=== PATIENT | male | born 1950 | race Caucasian/White ===

== ENCOUNTER 2020-04-18 03:45 | Outpatient (CLI) | payer MEDICARE, SELFPAY ==
[2020-04-18 16:31] LABS: SARS-CoV-2 RNA PCR Negative
== END 2020-04-18 03:46 | disposition home or self-care (01) ==
LOC: ANHCOVIDDT 03:46
PROVIDERS: PCP Family Medicine; Visit Provider Internal Medicine Critical Care Medicine
DX: R68.89 Other general symptoms and signs (principal); Z20.822 Contact with and (suspected) exposure to COVID-19
CPT/HCPCS: C9803; U0003; U0005

== ENCOUNTER 2020-04-20 07:49 | Outpatient (CLI) | payer MEDICARE, SELFPAY ==
--- NOTE | 2020-05-22 08:52 | WPDSLEEPSTUD ---
Sleep Study Date of Study: 04/20/20 Ordering Provider: Noemi Alejo MD Interpreting Physician: Nat Mckay MD Sleep Study Type: Split Polysomnogram Height: 1.8 m Weight: 131.995 kg Body Mass Index: 40.6 Neck Circumference: 50.8 cm [place]: 6 Reason for Sleep Study Frequent loud snoring Sleep History Fidel March is a 69-year-old man who frequently snores, occasionally loudly enough that others complain about it. He occasionally awakens at night with heartburn, belching or coughing. He occasionally awakens from sleep feeling short of breath. He occasionally has trouble sleeping with a cold. He occasionally gasp for breath at night and has breathing problems at night reported to him by others. He rarely sweats excessively at night. He does not notice his heart pounding or beating irregularly at night. He rarely falls asleep during the day, never involuntarily or while driving. He does not have loss of muscle tone with strong emotion. He does not have daytime difficulties due to excessive sleepiness, he is retired. He denies feeling paralyzed when waking or falling asleep and denies vivid dreamlike scenes upon awakening or falling asleep. He is not afraid to go to sleep. He rarely has nightmares. He occasionally remembers his dreams. He rarely has racing thoughts. He denies feelings of sadness, depression, anxiety and does not have muscular tension, does not notice part of his body jerking. He does not kick at night or have crawling aching feelings in his legs. He denies any kind of leg pain at night. He does not have morning jaw pain. He rarely grinds his teeth during sleep. He rarely is bothered by pain during the day. He is not awakened by pain at night. He rarely wakes up feeling stiff in the morning with sore achy muscles or pain in the spine. He reports a 10 lb weight gain in the last year. Normal bedtime is 10:00 p.m. falling asleep within 30 minutes, waking 2-3 times at night to urinate. He stays awake for roughly 15 minutes. He wakes in the morning between 7 and 8:00 a.m.. He estimates 9 hours of sleep at night. Weekend schedule is the same. He does not generally take naps. A short nap maybe refreshing. He rarely has morning headaches. He is not sure if he feels refreshed on waking. Habits: Smoked tobacco 25 years ago. Caffeine 1 per day. Alcohol 5 beverages a couple of times a week. [facility] Past Medical History Medical History Benign essential hypertension Chronic low back pain without sciatica Dyslipidemia GERD without esophagitis History of complete eye exam 08/2018 L1 vertebral fracture 03/01/2008 Type 2 diabetes mellitus without complication, without long-term current use of insulin Surgical History Surgical History Hx of colonoscopy (~10/17/18) 10/17/2018 [place] teeth extracted (~2011) Family History Family History Mother Diabetes mellitus Father Hypertension Family history of throat cancer Social History Social History Smoking status: Former smoker Tobacco type: cigarettes Second hand tobacco smoke exposure: No Smoking end date: 04/01/95 Alcohol intake: current Substance use: never Substance use type: does not use Gender identity (if verbalized by the patient): Male Medications Home Medications Medication Instructions Recorded Confirmed Type diclofenac sodium 75 mg 75 mg PO BID PRN #60 tablet 11/16/19 04/28/20 Rx tablet,delayed release losartan 100 mg tablet See Rx Instructions .ROUTE 12/16/19 04/28/20 Rx .COMPLEX #90 tablet metformin 500 mg tablet,extended See Rx Instructions .ROUTE 12/16/19 04/28/20 Rx release 24 hr .COMPLEX #180 tablet pioglitazone 45 mg tablet See Rx Instructions .ROUTE 12/16/19 04/28/20
[2020-05-22 09:20] VITALS: BMI 40.6
== END 2020-04-20 07:50 | disposition home or self-care (01) ==
LOC: ANHCSM 07:50
PROVIDERS: PCP Family Medicine; Visit Provider Family Medicine
DX: G47.30 Sleep apnea, unspecified (principal); G47.33 Obstructive sleep apnea (adult) (pediatric)
CPT/HCPCS: 95811

== ENCOUNTER 2021-10-17 12:22 | Outpatient (CLI) | payer MEDICARE, SELFPAY ==
[2021-10-17 18:43] LABS: Basophils Absolute Auto 0.1 K/mm3 (0.0-0.1); Basophils Percent Auto 0.8 % (0.2-1.2); Eosinophils Absolute Auto 0.1 K/mm3 (0-0.3); Eosinophils Percent Auto 1.7 % (0-4.4); Hematocrit 49.5 % (42.0-52.0); Hemoglobin 15.7 g/dL (14.0-18.0); Immature Granulocyte Absolute 0.03 K/mm3 (0.00-0.031); Immature Granulocyte Percent A 0.5 % (0-0.5); Lymphocytes Absolute Auto 1.58 K/mm3 (0.9-3.2); Lymphocytes Percent Auto 23.7 % (18.3-44.2); Mean Corpuscular HGB Conc 31.7 g/dl (32-36); Mean Corpuscular Volume 97.8 fl (80-100); Mean Platelet Volume 11.3 fl (7.4-10.4); Monocytes Absolute Auto 0.7 K/mm3 (0.1-0.6); Monocytes Percent Auto 10.1 % (2.6-8.5); Neutrophils Absolute Auto 4.2 K/mm3 (1.3-6.7); Neutrophils Percent Auto 63.2 % (45.5-73.1); Platelet Count Result 136 k/mm3 (150-375); Red Blood Count 5.06 M/mm3 (4.6-6.20); Red Cell Distribution Width 13.5 % (11.5-14.5); White Blood Count 6.7 K/mm3 (4.5-10.0)
[2021-10-17 18:47] LABS: Alanine Aminotransferase 18 U/L (6-50); Albumin Level 4.5 g/dL (3.5-5.1); Alkaline Phosphatase 70 U/L (38-126); Anion Gap 10 mmol/L (8-16); Aspartate Amino Transferase 23 U/L (17-59); Bilirubin,Total 0.8 mg/dL (0.2-1.3); Blood Urea Nitrogen 16 mg/dL (9-20); Calcium 9.6 mg/dL (8.4-10.2); Carbon Dioxide 27 mmol/L (22-30); Chloride 103 mmol/L (98-107); Estimated Glomerular Filt Rate > 60; Glucose 152 mg/dL (65-110); Potassium 4.2 mmol/L (3.4-5.0); Sodium 140 mmol/L (137-145)
[2021-10-17 20:53] LABS: Hemoglobin A1C 7.3 % (<5.7)
== END 2021-10-17 12:23 | disposition home or self-care (01) ==
LOC: ANHLAB 12:33 → ANHGOSHLAB 12:43
PROVIDERS: PCP Family Medicine; Visit Provider Family Medicine
DX: R06.09 Other forms of dyspnea (principal); I10 Essential (primary) hypertension; E11.9 Type 2 diabetes mellitus without complications
CPT/HCPCS: 36415; 80053; 83036; 85025

== ENCOUNTER 2021-10-24 08:44 | Outpatient (CLI) | payer MEDICARE, SELFPAY ==
--- NOTE | 2021-10-24 | EST_ITS ---
Patient Info Name: Fidel aMrch Age: 70 years : 1950 Gender: Male Ht: 71 in Wt: 284 lbs BSA: 2.59 m2 BP: 130 / 79 mmHg Exam Date: 10/24/2021 9:46 AM Exam Location: [facility] Stress Patient Status: Outpatient Admit Date: 10/24/2021 Staff Ordering Physician: Rishi Alejo MD Attending Provider: Rishi Alejo MD Exercise Technologist: Zeinab Do RDCS Exercise Physician: Romulo Wellington DO Exam Type: CA stress ella w NM Study Info Indications R06.09 - Other forms of dyspnea A regadenoson stress test was performed. Summary 1. 1. Negative lexiscan stress test for ischemic ST changes by ECG criteria. 2. 2. Stable hemodynamics throughout the test. 3. 3. Nuclear scan to follow and will be reported separately. Please correlate with it. 4. 4. Patient informed of the above results. Protocol: Lexiscan Stress ECG Details Stage: REST Duration (min): 7 min : 24 sec HR (bpm): 81 SBP (mmHg): 130 DBP (mmHg): 79 Stage: REST Duration (min): 9 min : 56 sec HR (bpm): 89 SBP (mmHg): 130 DBP (mmHg): 79 Stage: STAGE 1 Duration (min): 0 min : 59 sec HR (bpm): 98 SBP (mmHg): 166 DBP (mmHg): 80 Stage: RECOVERY Duration (min): 1 min : 0 sec HR (bpm): 110 SBP (mmHg): 148 DBP (mmHg): 76 Stage: RECOVERY Duration (min): 2 min : 0 sec HR (bpm): 108 SBP (mmHg): 148 DBP (mmHg): 76 Stage: RECOVERY Duration (min): 3 min : 0 sec HR (bpm): 103 SBP (mmHg): 143 DBP (mmHg): 77 Stage: RECOVERY Duration (min): 4 min : 0 sec HR (bpm): 108 SBP (mmHg): 143 DBP (mmHg): 77 Stage: RECOVERY Duration (min): 4 min : 42 sec HR (bpm): 94 SBP (mmHg): 151 DBP (mmHg): 69 Rest HR: 89 bpm Peak HR: 120 bpm Rest Sys BP: 130 mmHg Peak Sys BP: 166 mmHg Max Pred HR: 150 bpm % Max Pred HR: 80 % Target HR: 128 bpm Max RPP: 19,920 bpm*mmHg Termination Reason: Completed protocol Cardiac Symptoms: Shortness of breath Total Time: 1 min : 0 sec Rest Melvin BP: 79 mmHg Peak Melvin BP: 80 mmHg Total Dose: 0.4 mg Resting ECG Atrial flutter/tachycardia, RBBB. Stress ECG No ST changes. Arrhythmias No other arrhythmias. Report Signatures
--- NOTE | ~2021-10-24 | NM_ITS ---
EXAMINATION: NM ella stress w perfusion DATE: 10/24/2021 10:51 INDICATION: Dyspnea on exertion TECHNIQUE: Rest images were obtained following intravenous administration of 9.9 mCi Tc99m tetrofosmi n (Myoview). The patient was infused intravenously with Lexiscan (Regadenoson). Then, 31.7 mCi Tc99m tetrofosmin (Myoview) was administered intravenously, and stress images were obtained. Data was recon structed into short axis and horizontal and vertical long axis SPECT images. Gated SPECT images were also obtained. COMPARISON: None. FINDINGS: There is no definite reversible or fixed perfusion abnormality to suggest ischemia or infar ction. There is normal left ventricular chamber size, wall motion and ejection fraction. Left ventr icular ejection fraction measures >70%. IMPRESSION: 1. Normal myocardial perfusion at rest and during stress. 2. Left ventricular ejection fraction measuring >70%. Reviewed, dictated and finalized at location A.
== END 2021-10-24 08:45 | disposition home or self-care (01) ==
PROVIDERS: PCP Family Medicine; Visit Provider Family Medicine
DX: R06.09 Other forms of dyspnea (principal)
CPT/HCPCS: 78452; 93017; A9502; J2785

== ENCOUNTER 2022-03-21 09:20 | Outpatient (CLI) | payer MEDICARE, SELFPAY ==
[2022-03-21 18:50] LABS: Basophils Percent Auto 0.7 % (0.2-1.2); Eosinophils Absolute Auto 0.1 K/mm3 (0-0.3); Eosinophils Percent Auto 2.3 % (0-4.4); Hematocrit 48.5 % (42.0-52.0); Hemoglobin 15.7 g/dL (14.0-18.0); Immature Granulocyte Absolute 0.03 K/mm3 (0.00-0.031); Immature Granulocyte Percent A 0.5 % (0-0.5); Lymphocytes Absolute Auto 2.16 K/mm3 (0.9-3.2); Lymphocytes Percent Auto 35.9 % (18.3-44.2); Mean Corpuscular HGB Conc 32.4 g/dl (32-36); Mean Corpuscular Volume 95.7 fl (80-100); Mean Platelet Volume 11.5 fl (7.4-10.4); Monocytes Absolute Auto 0.6 K/mm3 (0.1-0.6); Monocytes Percent Auto 10.3 % (2.6-8.5); Neutrophils Percent Auto 50.3 % (45.5-73.1); Platelet Count Result 147 k/mm3 (150-375); Red Blood Count 5.07 M/mm3 (4.6-6.20); Red Cell Distribution Width 13.2 % (11.5-14.5)
[2022-03-21 18:51] LABS: Hemoglobin A1C 7.1 % (<5.7)
[2022-03-21 18:58] LABS: Creatinine Urine 55.1 mg/dL
[2022-03-21 19:06] LABS: MALB Creatinine Ratio 76.4 mg/g (0-30); Microalbumin Urine Random 42.1 mg/L (0-16.7)
[2022-03-21 19:20] LABS: Alanine Aminotransferase 27 U/L (6-50); Albumin Level 4.7 g/dL (3.5-5.1); Alkaline Phosphatase 63 U/L (38-126); Anion Gap 9 mmol/L (8-16); Aspartate Amino Transferase 29 U/L (17-59); Bilirubin,Total 0.8 mg/dL (0.2-1.3); Blood Urea Nitrogen 18 mg/dL (9-20); Calcium 9.4 mg/dL (8.4-10.2); Carbon Dioxide 28 mmol/L (22-30); Chloride 103 mmol/L (98-107); Cholesterol 168 mg/dL (0-200); Estimated Glomerular Filt Rate > 60; Glucose 176 mg/dL (65-110); HDL Direct 48 mg/dL; Sodium 140 mmol/L (137-145); Triglycerides 154 mg/dL (<150)
[2022-03-21 19:31] LABS: LDL Cholesterol Direct 80 mg/dL
[2022-03-21 19:49] LABS: Prostate Specific Antigen 3.2 ng/mL (< OR = 4.0)
[2022-03-21 20:25] LABS: Vitamin D 25 Hydroxy 26.3 ng/mL
== END 2022-03-21 09:21 | disposition home or self-care (01) ==
LOC: ANHGOSHLAB 09:21
PROVIDERS: PCP Family Medicine; Visit Provider Family Medicine
DX: E11.9 Type 2 diabetes mellitus without complications (principal); Z12.5 Encounter for screening for malignant neoplasm of prostate; E55.9 Vitamin D deficiency, unspecified; E78.5 Hyperlipidemia, unspecified; I10 Essential (primary) hypertension; I48.92 Unspecified atrial flutter; E53.8 Deficiency of other specified B group vitamins
CPT/HCPCS: 36415; 80053; 80061; 82043; 82306; 82607; 83036; 84153; 84443; 85025; G0103

== ENCOUNTER 2022-06-13 12:25 | Outpatient (CLI) | payer MEDICARE, SELFPAY ==
--- NOTE | 2022-06-13 12:40 | ECHO_ITS ---
Patient Info Name: Fidel March Age: 71 years : 1950 Gender: Male Ht: 71 in Wt: 280 lbs BSA: 2.57 m2 HR: 81 bpm BP: 146 / 78 mmHg Heart Rhythm: Sinus Rhythm Technical Quality: Fair Exam Date: 06/13/2022 12:42 PM Exam Location: [facility] Patient Status: Outpatient Admit Date: 06/13/2022 Staff Ordering Physician: Romulo Wellington DO Rivet Heater: Aicha Ramires RDCS Attending Provider: Romulo Wellington DO Referring Physician: Amish STAHL; Exam Type: CA echo dop color flow w con Study Info Indications I48.92 - Unspecified atrial flutter Complete two-dimensional, color flow and Doppler transthoracic echocardiogram is performed with contrast to opacify the left ventricle and to improve the deliniation of the left ventricle endocardial borders. Contrast/Agitated Saline Contrast/Ag. Saline: Definity Amount: 3.00 ml Administered By: Aicha Ramires RDCS Existing IV Access: No IV Access Condition: patent with no signs of infiltration New IV Access: Left Summary 1. Left ventricular chamber dimension is normal. 2. Definity contrast administered improved wall motion interpretation. 3. Left ventricular systolic function is hyperdynamic, estimated at >70%. 4. There is mildly increased left ventricular wall thickness. 5. The left ventricular diastolic function is grade I diastolic dysfunction. 6. There is mild aortic valve sclerosis. Left Ventricle Definity contrast administered improved wall motion interpretation. Tissue doppler E/e' is not calculated. Left ventricular chamber dimension is normal. Left ventricular systolic function is hyperdynamic, estimated at >70%. There is mildly increased left ventricular wall thickness. The left ventricular diastolic function is grade I diastolic dysfunction. Right Ventricle Right ventricular systolic function is normal and with normal TAPSE 2.5 cm. Right ventricular chamber dimension is normal. Left Atria Left atrial chamber dimension is normal. Right Atria Right atrial chamber dimension is normal. Aortic Valve The aortic valve is trileaflet. There is mild aortic valve sclerosis. There is no aortic valve stenosis. There is no aortic valve regurgitation. Pulmonic Valve There is no pulmonic regurgitation. Mitral Valve There is no mitral valve stenosis. There is no mitral valve regurgitation. Tricuspid Valve There is no tricuspid valve regurgitation. Pericardium/Pleural There is no pericardial effusion. Inferior Vena Cava Normal inferior vena cava with >50% collapse upon inspiration consistent with normal right atrial pressure, 5 mmHg. Aorta The aortic root size at the sinus of Valsalva is normal. Left Ventricular Outflow Tract Name Value Normal LVOT 2D LVOT Diameter 2.32 cm LVOT Doppler LVOT Peak Gradient 4 mmHg LVOT Mean Gradient 2 mmHg LVOT VTI 19.41 cm LVOT VTI/AV VTI Ratio 0.94 LVOT Stroke Volume 82.13 ml LVOT
[2022-06-13] MEDS: PERFLUTREN LIPID MICROSPHERES 1.5 ML VIAL DILUTED TO 10 ML TOTAL VOLUME IV PUSH (13:30)
== END 2022-06-13 12:26 | disposition home or self-care (01) ==
LOC: ANHCARD 12:26
PROVIDERS: PCP Family Medicine; Visit Provider Internal Medicine Cardiovascular Disease
DX: I48.92 Unspecified atrial flutter (principal)
CPT/HCPCS: C8929; Q9957

== ENCOUNTER 2022-09-25 09:23 | Outpatient (CLI) | payer MEDICARE, SELFPAY ==
[2022-09-25 18:47] LABS: Alanine Aminotransferase 25 U/L (6-50); Albumin Level 4.3 g/dL (3.5-5.1); Alkaline Phosphatase 53 U/L (38-126); Anion Gap 8 mmol/L (8-16); Aspartate Amino Transferase 34 U/L (17-59); Bilirubin,Total 0.7 mg/dL (0.2-1.3); Blood Urea Nitrogen 13 mg/dL (9-20); Calcium 9.3 mg/dL (8.4-10.2); Carbon Dioxide 29 mmol/L (22-30); Chloride 101 mmol/L (98-107); Estimated Glomerular Filt Rate > 60; Glucose 179 mg/dL (65-110); Potassium 4.6 mmol/L (3.4-5.0); Sodium 138 mmol/L (137-145)
[2022-09-25 20:45] LABS: Hemoglobin A1C 7.6 % (<5.7)
== END 2022-09-25 09:24 | disposition home or self-care (01) ==
LOC: ANHGOSHLAB 09:24
PROVIDERS: PCP Family Medicine; Visit Provider Family Medicine
DX: E11.9 Type 2 diabetes mellitus without complications (principal); I10 Essential (primary) hypertension
CPT/HCPCS: 36415; 80053; 83036

== ENCOUNTER 2023-04-09 09:05 | Outpatient (CLI) | payer MEDICARE, SELFPAY ==
[2023-04-09 19:21] LABS: Alanine Aminotransferase 23 U/L (6-50); Albumin Level 4.2 g/dL (3.5-5.1); Alkaline Phosphatase 65 U/L (38-126); Anion Gap 9 mmol/L (8-16); Aspartate Amino Transferase 38 U/L (17-59); Bilirubin,Total 0.8 mg/dL (0.2-1.3); Blood Urea Nitrogen 14 mg/dL (9-20); Calcium 9.2 mg/dL (8.4-10.2); Carbon Dioxide 26 mmol/L (22-30); Chloride 104 mmol/L (98-107); Cholesterol 183 mg/dL (0-200); Estimated Glomerular Filt Rate > 60; Glucose 191 mg/dL (65-110); HDL Direct 41 mg/dL; Potassium 4.2 mmol/L (3.4-5.0); Sodium 139 mmol/L (137-145); Triglycerides 232 mg/dL (<150)
[2023-04-09 19:33] LABS: LDL Cholesterol Direct 98 mg/dL
[2023-04-09 19:51] LABS: Prostate Specific Antigen 3.8 ng/mL (< OR = 4.0)
[2023-04-09 20:06] LABS: Basophils Percent Auto 0.6 % (0.2-1.2); Eosinophils Absolute Auto 0.2 K/mm3 (0-0.3); Eosinophils Percent Auto 2.6 % (0-4.4); Hematocrit 49.4 % (42.0-52.0); Hemoglobin 15.7 g/dL (14.0-18.0); Immature Granulocyte Absolute 0.03 K/mm3 (0.00-0.031); Immature Granulocyte Percent A 0.5 % (0-0.5); Lymphocytes Percent Auto 33.9 % (18.3-44.2); Mean Corpuscular HGB Conc 31.8 g/dl (32-36); Mean Corpuscular Volume 97.4 fl (80-100); Mean Platelet Volume 11.5 fl (7.4-10.4); Monocytes Absolute Auto 0.5 K/mm3 (0.1-0.6); Monocytes Percent Auto 8.2 % (2.6-8.5); Neutrophils Absolute Auto 3.4 K/mm3 (1.3-6.7); Neutrophils Percent Auto 54.2 % (45.5-73.1); Platelet Count Result 171 k/mm3 (150-375); Red Blood Count 5.07 M/mm3 (4.6-6.20); Red Cell Distribution Width 13.7 % (11.5-14.5); White Blood Count 6.2 K/mm3 (4.5-10.0)
[2023-04-09 20:21] LABS: Hemoglobin A1C 8.2 % (<5.7)
[2023-04-09 20:34] LABS: Vitamin D 25 Hydroxy 17.8 ng/mL
[2023-04-09 20:40] LABS: Creatinine Urine 65.1 mg/dL
[2023-04-09 20:44] LABS: Microalbumin Urine Random 79.4 mg/L (0-16.7)
== END 2023-04-09 09:06 | disposition home or self-care (01) ==
LOC: ANHGOSHLAB 09:06
PROVIDERS: PCP Family Medicine; Visit Provider Family Medicine
DX: Z12.5 Encounter for screening for malignant neoplasm of prostate (principal); E78.5 Hyperlipidemia, unspecified; E11.9 Type 2 diabetes mellitus without complications; E53.8 Deficiency of other specified B group vitamins; G47.33 Obstructive sleep apnea (adult) (pediatric); E55.9 Vitamin D deficiency, unspecified; I10 Essential (primary) hypertension
CPT/HCPCS: 36415; 80053; 80061; 82043; 82306; 82607; 83036; 84153; 84443; 85025; G0103

== ENCOUNTER 2023-11-25 09:02 | Outpatient (CLI) | payer MEDICARE, SELFPAY ==
[2023-11-25 14:33] LABS: Hemoglobin A1C 8.3 % (<5.7)
[2023-11-25 15:08] LABS: Alanine Aminotransferase 25 U/L (6-50); Albumin Level 4.6 g/dL (3.5-5.1); Alkaline Phosphatase 57 U/L (38-126); Anion Gap 12 mmol/L (4-12); Aspartate Amino Transferase 58 U/L (17-59); Bilirubin,Total 0.6 mg/dL (0.2-1.3); Blood Urea Nitrogen 19 mg/dL (9-20); Calcium 9.5 mg/dL (8.4-10.2); Carbon Dioxide 26 mmol/L (22-30); Chloride 99 mmol/L (98-107); Estimated Glomerular Filt Rate > 60; Glucose 211 mg/dL (65-110); Sodium 137 mmol/L (137-145)
== END 2023-11-25 09:03 | disposition home or self-care (01) ==
PROVIDERS: PCP Family Medicine; Visit Provider Family Medicine
DX: I10 Essential (primary) hypertension (principal); E11.9 Type 2 diabetes mellitus without complications; E55.9 Vitamin D deficiency, unspecified
CPT/HCPCS: 36415; 80053; 82306; 83036

== ENCOUNTER 2024-02-19 08:06 | Outpatient (CLI) | payer MEDICARE, SELFPAY ==
[2024-02-19 15:49] LABS: Cholesterol 129 mg/dL (0-200); HDL Direct 39 mg/dL; Triglycerides 169 mg/dL (<150)
[2024-02-19 16:00] LABS: LDL Cholesterol Direct 50 mg/dL
== END 2024-02-19 08:07 | disposition home or self-care (01) ==
LOC: ANHGOSHLAB 08:07
PROVIDERS: PCP Family Medicine; Visit Provider Internal Medicine Cardiovascular Disease
DX: E78.5 Hyperlipidemia, unspecified (principal)
CPT/HCPCS: 36415; 80061

== ENCOUNTER 2024-04-28 00:19 | Day surgery (SDC) | payer MEDICARE, SELFPAY ==
[2024-04-16 10:34] VITALS: BMI 35.0
--- OUTSIDE RECORDS SUMMARY | 2024-04-28 00:25 | XMS_ITS | Clinical Summary ---
Author Organization [facility] Address [address] [place] [address]. [place], [place] [id number] [place] [id number] Care Team Providers Care Radio Interference Investigator Name Role Phone Noemi Alejo MD Primary Care Provider Allergies No known active allergies Medications metFORMIN (GLUCOPHAGE) 500 MG tablet Take 500 mg by mouth 2 (two) times daily with meals. Active glipiZIDE (GLUCOTROL) 10 MG tablet Take 10 mg by mouth 2 (two) times daily before meals. Active simvastatin (ZOCOR) 40 MG tablet Take 40 mg by mouth nightly at bedtime. Active losartan (COZAAR) 100 MG tablet Take 100 mg by mouth daily. Active pioglitazone (ACTOS) 45 MG tablet Take 45 mg by mouth daily. Active doxazosin (CARDURA) 8 MG tablet Take 8 mg by mouth nightly at bedtime. Active empagliflozin (JARDIANCE) 25 MG tablet Take 25 mg by mouth daily. 1/2 tab po daily Active Social History Tobacco Use Types Packs/Day Years Used Date Smoking Tobacco: Former Cigarettes Q uit: 1989 Smokeless Tobacco: Never Tobacco Cessation:Counseling Given: Not Answered Alcohol Use Standard Drinks/Week Comments Yes 10 (1 standard drink = 0.6 oz pu re alcohol) per week Sex and Gender Information Value Date Recorded Sex Assigned at Not on file Legal Sex Male 6:22 PM CDT Gender Identity Not on file Sexual Orientation Not on file Last Filed Vital Signs Vital Sign Reading Time Taken Comments Blood Pressure 111/82 04/30/2022 12:59 PM COPIER AND PRINTER FIELD TECHNICIAN Pulse 84 04/30/2022 10:11 AM COPIER AND PRINTER FIELD TECHNICIAN Temperature 36.1 ??C (97 ??F) 04/30/2022 10:11 AM COPIER AND PRINTER FIELD TECHNICIAN Respiratory Rate 18 04/30/2022 10:11 AM COPIER AND PRINTER FIELD TECHNICIAN Oxygen Saturation 96% 04/30/2022 12:59 PM COPIER AND PRINTER FIELD TECHNICIAN Inhaled Oxygen Concentration - - Weight 127 kg (280 lb) 04/23/2022 11:37 AM COPIER AND PRINTER FIELD TECHNICIAN Height 181.6 cm (5' 11.5 ) 04/23/2022 11:[address] Body Mass Index 38.51 04/23/2022 11:37 AM COPIER AND PRINTER FIELD TECHNICIAN Plan of Treatment Health Maintenance Due Date Last Done Comments Colorectal Cancer Screening Colonoscopy (10 Years) 1950 Hepatitis C 1968 Zoster Vaccines (1 of 2) 2000 Annual Medicare Wellness Visit 11/15/2015 DTaP, Tdap and Td Vaccines ( 2 - Td or Tdap) 07/21/2023 07/20/2013 COVID-19 Vaccine (3 - 2023-2 5 season) 2023 06/10/2020, 05/18/2020 Influenza Adult (#1) 2023 01/14/2018 RSV Immunization or 60+ Years (1 - 1-dose 75+ series) 2025 Pneumococcal Vaccine: 65+ Years Completed 03/04/2020, 11/27/2016, 12/12/2011 Meningococcal B Vaccine Aged Out No l onger eligible based on patient's age to complete this topic Meningococcal Vaccine Aged Out No [place] eligible based on patient's age to complete this topic RSV Immunizations Under 20 Months Aged Out No longer eligible b ased on patient's age to complete this topic Medical Devices Implanted Type Area Speaker Wirer Device Identifier Shelf Expiration Date Model / Serial / Lot Tecnis Synergy Iol Implanted:Qty: 1 on 04/30/2022 by Sha Johnson MD at [facility] Right: Eye [employer] [id number] 05/23/2024 [id number] / [id number] / Insurance [facility] Care Teams Radio Interference Investigator Relationship Specialty Start Date End Date Noemi Alejo MD [id number] [facility] [address] [place] [address] PCP - General FAMILY PRACTICE 04/30/22
--- NOTE | 2024-04-28 06:50 | P.PNAN_ITS ---
Anes - Initial Pre Proc Eval Procedure: Operation Date: 04/28/24 08:00 Proposed Procedures p Screening Colonoscopy - Bhupendra Son MD Date/Time: 04/28/24 06:50 Surgeon: Bhupendra Son MD Pre Op Diagnosis: personal hx colon polyps Patient Data Age: 73 Gender: M Height: 1.82 m Weight: 115.7 kg Allergies Allergy/AdvReac Type Severity Reaction Status Date / Time No Known Allergies Allergy Verified 04/28/24 06:45 Home Medications ?Medication ?Instructions ?Recorded ?Confirmed ?Type blood-glucose meter (Accu-Chek #1 ea 03/07/20 02/18/24 Rx Guide Glucose Meter) aspirin 325 mg tablet,delayed 325 mg PO DAILY 08/09/22 04/28/24 History release blood sugar diagnostic (Blood #100 ea 04/09/23 02/18/24 Rx Glucose Test strips) lancets 28 gauge ([employer] Thin See Rx Instructions .Route 04/09/23 04/16/24 Rx Lancets) .COMPLEX #100 ea diclofenac sodium 75 mg 75 mg PO BID PRN pain #60 tabs 06/26/23 04/16/24 Rx tablet,delayed release blood-glucose sensor (Dexcom G7 #9 ea 07/01/23 02/18/24 Rx Sensor device) metoprolol succinate 50 mg 50 mg PO DAILY 11/25/23 04/28/24 History tablet,extended release 24 hr semaglutide 2 mg/dose (8 mg/3 mL) See Rx Instructions .Route 01/29/24 04/16/24 Rx subcutaneous pen injector ([employer]) .COMPLEX #9 mL omega 8-evh-hyh-fish oil 1,000 mg 1 cap PO DAILY 02/18/24 04/28/24 History (120 mg-180 mg) capsule (Fish Oil) empagliflozin 25 mg tablet 25 mg PO DAILY 04/16/24 04/28/24 History (Jardiance) doxazosin 8 mg tablet See Rx Instructions .Route 04/27/24 04/28/24 Rx .COMPLEX #100 tabs glipizide 10 mg tablet, extended See Rx Instructions .Route 04/27/24 04/28/24 Rx release 24 hr .COMPLEX #200 tabs losartan 100 mg tablet See Rx Instructions .Route 04/27/24 04/28/24 Rx .COMPLEX #100 tabs metformin 500 mg tablet,extended See Rx Instructions .Route 04/27/24 04/28/24 Rx release 24 hr .COMPLEX #200 tabs simvastatin 40 mg tablet See Rx Instructions .Route 04/27/24 04/28/24 Rx .COMPLEX #100 tabs Patient hx anesthesia problems: none Family hx anesthesia problems: none Results Review: All pre-operative results and documents have been reviewed as part of the pre- operative evaluation. [facility] Past Medical History Medical History Severe obesity (BMI 35.0-39.9) with comorbidity Atrial flutter Vitamin D deficiency History of complete eye exam 08/2018 L1 vertebral fracture 03/01/2008 Dyslipidemia GERD without esophagitis Benign essential hypertension Type 2 diabetes mellitus without complication, without long-term current use of insulin Chronic low back pain without sciatica Surgical History Surgical History [place] teeth extracted (~2011) Hx of colonoscopy (~10/17/18) 10/17/2018 Family History Family History Mother Diabetes mellitus Father Hypertension Family history of throat cancer Social History Social History Smoking status: Former smoker (< 15 pack years) Tobacco type: cigarettes Second hand tobacco smoke exposure: No Smoking end date: 04/01/94 Alcohol intake: current Alcohol use details: consumes 1 beer rarely Substance use: never Substance use type: does not use Lack of Transportation: No Lack of Food: Never True Current Housing: I Have Housing Concerned About Future Housing: No Difficulty Paying Gas/Electric Bills: No Difficulty Paying for Meds: No Currently Unemployed: No Education: High School Diploma/GED Difficulty w/ Childcare or Family Care: No Living arrangements: with family Additional living arrangements comments: Girlfriend Occupation/Education: retired Gender identity (if verbalized by the patient): Male Spiritual care concerns: No Anes - Eval Final PreProcedure Day of Procedure 04/28/24 06:50 Patient weight: obese Heart: regular rate and rhythm Lungs: clear to auscultation Airway: Mallampati scale class III Neurological: alert and oriented Last oral intake: >/= 8 hours ASA classification: III Emergent: no Anesthetic plan: proceed Anesthesia type and monitoring: general GIVS and standard monitoring Results Review: All pre-operative results and documents have been reviewed as part of the pre- operative evaluation. HTN, hyperlipidemia, JAUN on CPAP severe, Hx of aflutter noted on stress ECHO 2021 which was nml, ECHO 2022 w LVEF 70%. Pt has been off metoprolol due to dizziness for approx 3 weeks. Informed Consent: The patient's anesthetic plan and its attendant risks and benefits were discussed with the patient/family/POA. Questions were solicited and answers provided to the satisfaction of the patient/family/POA.
[2024-04-28 06:51] VITALS: BP 133/85; PULSE 89; RESP 18; TEMP 36.1; O2SAT 100
[2024-04-28] MEDS: LACTATED RINGERS 1,000 ML 150 ML IV CONT (07:04)
[2024-04-28 07:05] LABS: Glucose Point of Care 181 mg/dl (65-105)
--- NOTE | 2024-04-28 07:55 | P.HP_ITS ---
History of Present Illness History of Present Illness Consent: Risks, benefits, and alternatives have been discussed and questions answered. Patient agrees to proceed with procedure. Chief complaint: personal hx colon polyps Narrative: Fidel March is a 73 year old male with colon polyp in 2019 Review of Systems Review of Systems: All systems reviewed & are unremarkable except as noted in HPI and below PMFSH Past Medical History Medical History (Updated 04/28/24 @ 07:57 by Bhupendra Son MD) Colon polyp Severe obesity (BMI 35.0-39.9) with comorbidity Atrial flutter Vitamin D deficiency History of complete eye exam 08/2018 L1 vertebral fracture 03/01/2008 Dyslipidemia GERD without esophagitis Benign essential hypertension Type 2 diabetes mellitus without complication, without long-term current use of insulin Chronic low back pain without sciatica Surgical History Surgical History [place] teeth extracted (~2011) Hx of colonoscopy (~10/17/18) 10/17/2018 Family History Family History Mother Diabetes mellitus Father Hypertension Family history of throat cancer Social History Social History Smoking status: Former smoker (< 15 pack years) Tobacco type: cigarettes Second hand tobacco smoke exposure: No Smoking end date: 04/01/94 Alcohol intake: current Alcohol use details: consumes 1 beer rarely Substance use: never Substance use type: does not use Lack of Transportation: No Lack of Food: Never True Current Housing: I Have Housing Concerned About Future Housing: No Difficulty Paying Gas/Electric Bills: No Difficulty Paying for Meds: No Currently Unemployed: No Education: High School Diploma/GED Difficulty w/ Childcare or Family Care: No Living arrangements: with family Additional living arrangements comments: Girlfriend Occupation/Education: retired Gender identity (if verbalized by the patient): Male Spiritual care concerns: No Meds Home Medications and Allergies Home Medications ?Medication ?Instructions ?Recorded ?Confirmed ?Type blood-glucose meter (Accu-Chek #1 ea 03/07/20 02/18/24 Rx Guide Glucose Meter) aspirin 325 mg tablet,delayed 325 mg PO DAILY 08/09/22 04/28/24 History release blood sugar diagnostic (Blood #100 ea 04/09/23 02/18/24 Rx Glucose Test strips) lancets 28 gauge ([employer] Thin See Rx Instructions .Route 04/09/23 04/16/24 Rx Lancets) .COMPLEX #100 ea diclofenac sodium 75 mg 75 mg PO BID PRN pain #60 tabs 06/26/23 04/16/24 Rx tablet,delayed release blood-glucose sensor (Dexcom G7 #9 ea 07/01/23 02/18/24 Rx Sensor device) metoprolol succinate 50 mg 50 mg PO DAILY 11/25/23 04/28/24 History tablet,extended release 24 hr semaglutide 2 mg/dose (8 mg/3 mL) See Rx Instructions .Route 01/29/24 04/16/24 Rx subcutaneous pen injector ([employer]) .COMPLEX #9 mL omega 1-did-xdj-fish oil 1,000 mg 1 cap PO DAILY 02/18/24 04/28/24 History (120 mg-180 mg) capsule (Fish Oil) empagliflozin 25 mg tablet 25 mg PO DAILY 04/16/24 04/28/24 History (Jardiance) doxazosin 8 mg tablet See Rx Instructions .Route 04/27/24 04/28/24 Rx .COMPLEX #100 tabs glipizide 10 mg tablet, extended See Rx Instructions .Route 04/27/24 04/28/24 Rx release 24 hr .COMPLEX #200 tabs losartan 100 mg tablet See Rx Instructions .Route 04/27/24 04/28/24 Rx .COMPLEX #100 tabs metformin 500 mg tablet,extended See Rx Instructions .Route 04/27/24 04/28/24 Rx release 24 hr .COMPLEX #200 tabs simvastatin 40 mg tablet See Rx Instructions .Route 04/27/24 04/28/24 Rx .COMPLEX #100 tabs Allergies Allergy/AdvReac Type Severity Reaction Status Date / Time No Known Allergies Allergy Verified 04/28/24 06:45 Vital Signs Vital Signs - 24 hr 04/28/24 06:51 Temperature 97 F L Pulse Rate 89 Respiratory Rate 18 Blood Pressure 133/85 Pulse Oximetry 100 Oxygen Delivery Room Air Exam Const: General: comfortable and no acute distress HENMT: Face/Nose/Sinus: Normal nares present Eyes: General: appearance normal, both eyes and all related structures Neck: Neck: no JVD Resp: Auscultation: clear to auscultation bilaterally Cardio: Rate: regular rate Rhythm: regular rhythm GI: Inspection: non-distended GI Palp: Yes Soft to palpation Skin: General skin exam: normal color Neuro: Speech: normal speech Extrem: General: normal to inspection Psych: Mental Status: mental status grossly normal Assessment and Plan Assessment and plan (1) Colon polyp: Code(s): K63.5 - Polyp of colon Status: Acute Assessment and Plan: colonoscopy
--- NOTE | 2024-04-28 08:24 | SUR.OPER ---
A second syringe was used of endoscopic marker during procedure. The non pharmacy section in intraop charting would not allow a second occurrence to be put in of endoscopic marker so the lot, expiration, and number of mls used was put in the description as well. 2nd syringe lot [id number] Exp 2025-09-16 full strength 1ml used.
[2024-04-28 08:28] VITALS: BP 105/84; PULSE 79; RESP 18; O2SAT 98
[2024-04-28 08:38] VITALS: BP 102/58; PULSE 74; RESP 18; O2SAT 96
--- NOTE | 2024-04-28 08:41 | SUR.PHASEII ---
Patients POC capillary glucose is 177, read from continuous glucose monitor via phone
[2024-04-28 08:48] VITALS: BP 107/54; PULSE 67; RESP 18; O2SAT 97
== END 2024-04-28 09:01 | disposition home or self-care (01) ==
PROVIDERS: PCP Family Medicine; Referring Provider Family Medicine; Visit Provider Internal Medicine Gastroenterology
PROC: 0DJD8ZZ Inspection of Lower Intestinal Tract, Via Natural or Artificial Opening Endoscopic (ICD-10-PCS; CPT 45378; principal; 2024-04-28 08:00)
DX: Z12.11 Encounter for screening for malignant neoplasm of colon (principal); D37.4 Neoplasm of uncertain behavior of colon; K64.8 Other hemorrhoids; K57.30 Diverticulosis of large intestine without perforation or abscess without bleeding; E78.5 Hyperlipidemia, unspecified; I10 Essential (primary) hypertension; E11.9 Type 2 diabetes mellitus without complications; I48.92 Unspecified atrial flutter; E55.9 Vitamin D deficiency, unspecified; K21.9 Gastro-esophageal reflux disease without esophagitis; G89.29 Other chronic pain; M54.50 Low back pain, unspecified; E66.9 Obesity, unspecified; Z68.33 Body mass index [BMI] 33.0-33.9, adult; Z79.82 Long term (current) use of aspirin; Z79.85 Long-term (current) use of injectable non-insulin antidiabetic drugs; Z79.84 Long term (current) use of oral hypoglycemic drugs; Z87.891 Personal history of nicotine dependence; Z86.0100 Personal history of colon polyps, unspecified; Z80.1 Family history of malignant neoplasm of trachea, bronchus and lung
CPT/HCPCS: G0105; 82948; 88305; J2003; J2704; J7120

== ENCOUNTER 2024-04-30 09:37 | Outpatient (CLI) | payer MEDICARE, SELFPAY ==
[2024-04-30 16:16] LABS: Basophils Absolute Auto 0.1 K/mm3 (0.0-0.1); Eosinophils Absolute Auto 0.1 K/mm3 (0-0.3); Eosinophils Percent Auto 2.1 % (0-4.4); Hematocrit 47.1 % (42.0-52.0); Hemoglobin 15.1 g/dL (14.0-18.0); Immature Granulocyte Absolute 0.04 K/mm3 (0.00-0.031); Immature Granulocyte Percent A 0.7 % (0-0.5); Lymphocytes Absolute Auto 1.82 K/mm3 (0.9-3.2); Lymphocytes Percent Auto 29.9 % (18.3-44.2); Mean Corpuscular HGB Conc 32.1 g/dl (32-36); Mean Corpuscular Hemoglobin 30.6 pg (26-34); Mean Corpuscular Volume 95.3 fl (80-100); Mean Platelet Volume 11.3 fl (7.4-10.4); Monocytes Percent Auto 16.4 % (2.6-8.5); Neutrophils Percent Auto 49.9 % (45.5-73.1); Platelet Count Result 149 k/mm3 (150-375); Red Blood Count 4.94 M/mm3 (4.6-6.20); Red Cell Distribution Width 13.2 % (11.5-14.5); White Blood Count 6.1 K/mm3 (4.5-10.0)
[2024-04-30 16:50] LABS: Microalbumin Urine Random 35.6 mg/L (0-16.7)
[2024-04-30 16:53] LABS: Creatinine Urine 147.8 mg/dL; MALB Creatinine Ratio 24.1 mg/g (0-30)
[2024-04-30 16:56] LABS: Alanine Aminotransferase 24 U/L (6-50); Albumin Level 4.4 g/dL (3.5-5.1); Alkaline Phosphatase 56 U/L (38-126); Anion Gap 12 mmol/L (4-12); Aspartate Amino Transferase 31 U/L (17-59); Bilirubin,Total 0.8 mg/dL (0.2-1.3); Blood Urea Nitrogen 14 mg/dL (9-20); Calcium 9.2 mg/dL (8.4-10.2); Carbon Dioxide 24 mmol/L (22-30); Chloride 102 mmol/L (98-107); Cholesterol 119 mg/dL (0-200); Estimated Glomerular Filt Rate > 60; Glucose 122 mg/dL (65-110); HDL Direct 40 mg/dL; Sodium 138 mmol/L (137-145); Triglycerides 118 mg/dL (<150)
[2024-04-30 17:09] LABS: Vitamin D 25 Hydroxy 30.1 ng/mL
[2024-04-30 17:19] LABS: LDL Cholesterol Direct 57 mg/dL
[2024-04-30 17:41] LABS: Prostate Specific Antigen 3.9 ng/mL (< OR = 4.0)
[2024-04-30 17:45] LABS: Hemoglobin A1C 7.2 % (<5.7)
== END 2024-04-30 09:38 | disposition home or self-care (01) ==
LOC: ANHGOSHLAB 09:37
PROVIDERS: PCP Family Medicine; Visit Provider Family Medicine
DX: E11.9 Type 2 diabetes mellitus without complications (principal); Z00.00 Encounter for general adult medical examination without abnormal findings; I10 Essential (primary) hypertension; E78.5 Hyperlipidemia, unspecified; E55.9 Vitamin D deficiency, unspecified; E53.8 Deficiency of other specified B group vitamins; Z12.5 Encounter for screening for malignant neoplasm of prostate
CPT/HCPCS: 36415; 80053; 80061; 82043; 82306; 82607; 83036; 84153; 84443; 85025; G0103

== ENCOUNTER 2024-06-02 11:30 | Outpatient (CLI) | payer MEDICARE, SELFPAY ==
[2024-06-02 13:29] LABS: Basophils Absolute Auto 0.1 K/mm3 (0.0-0.1); Basophils Percent Auto 0.7 % (0.2-1.2); Eosinophils Absolute Auto 0.2 K/mm3 (0-0.3); Eosinophils Percent Auto 2.5 % (0-4.4); Hematocrit 46.6 % (42.0-52.0); Hemoglobin 14.9 g/dL (14.0-18.0); Immature Granulocyte Absolute 0.03 K/mm3 (0.00-0.031); Immature Granulocyte Percent A 0.4 % (0-0.5); Lymphocytes Absolute Auto 2.08 K/mm3 (0.9-3.2); Lymphocytes Percent Auto 28.7 % (18.3-44.2); Mean Corpuscular Hemoglobin 29.9 pg (26-34); Mean Corpuscular Volume 93.6 fl (80-100); Mean Platelet Volume 11.1 fl (7.4-10.4); Monocytes Absolute Auto 0.7 K/mm3 (0.1-0.6); Neutrophils Absolute Auto 4.3 K/mm3 (1.3-6.7); Neutrophils Percent Auto 58.7 % (45.5-73.1); Platelet Count Result 162 k/mm3 (150-375); Red Blood Count 4.98 M/mm3 (4.6-6.20); Red Cell Distribution Width 13.2 % (11.5-14.5); White Blood Count 7.2 K/mm3 (4.5-10.0)
[2024-06-02 14:38] LABS: Alanine Aminotransferase 24 U/L (6-50); Albumin Level 4.4 g/dL (3.5-5.1); Alkaline Phosphatase 63 U/L (38-126); Anion Gap 12 mmol/L (4-12); Aspartate Amino Transferase 23 U/L (17-59); Bilirubin,Total 0.9 mg/dL (0.2-1.3); Blood Urea Nitrogen 13 mg/dL (9-20); Calcium 9.6 mg/dL (8.4-10.2); Carbon Dioxide 24 mmol/L (22-30); Chloride 103 mmol/L (98-107); Estimated Glomerular Filt Rate > 60; Glucose 182 mg/dL (65-110); Potassium 4.2 mmol/L (3.4-5.0); Sodium 139 mmol/L (137-145)
[2024-06-02 15:19] LABS: Carcinoembryonic Antigen 2.5 ng/mL (0.0-3.0)
== END 2024-06-02 11:31 | disposition home or self-care (01) ==
LOC: ANHSURGERY 11:34
PROVIDERS: PCP Family Medicine; Visit Provider Surgery
DX: Z01.818 Encounter for other preprocedural examination (principal); K63.5 Polyp of colon
CPT/HCPCS: 36415; 71046; 80053; 82378; 85025; 86850; 86900; 86901; 93005

== ENCOUNTER 2024-06-10 13:15 | Inpatient (IN) | payer MEDICARE, SELFPAY ==
[2024-06-02 11:54] VITALS: BP 143/69; PULSE 74; RESP 16; TEMP 36.7; O2SAT 98; BMI 34.0
--- NOTE | 2024-06-02 12:12 | PC.NURSE ---
Addendum entered by Gaby Berumen RN 06/02/24 12:24: Pt also aware of ENSURE BUNDLE and instructions per DR Jose David SHINE Original Note: Report to the Outpatient Waiting Room, entrance under the green pavilion located off [facility], at time ___0600am____ on date __06/10/24 . Planned Procedure Time: __0730am .? Time changes happen often and if your time is changed the preop area will call you the afternoon before. - You and your visitor will be asked to self-screen and do not enter if you have any COVID symptoms. Please call surgeon if you need to reschedule. - A mask is optional within the hospital at this time. Patients may have clear liquids (water, carbonated beverages, clear teas, apple juice) until 3 hours prior to surgery with a maximum of 20 ounces. - No food from midnight until time of surgery and no smoking, or chewing tobacco (or any form of nicotine). No chewing gum, candy or mints. (0430am) Take only the following medications with a SIP of water on the morning of surgery: __Metoprolol, and Antibiotics as prescribed, Tylenol if needed ___ DO NOT STOP ANY OF YOUR OTHER PRESCRIPTION MEDICATIONS PRIOR TO SURGERY EXCEPT THE FOLLOWING Hold all vitamins and supplements for 3 days per anesthesiologist. Date to take last dose 06/06/24 Medications to discontinue per physician __Pt is to reduce aspirin to 81mg one week prior, date of that is to start today 06/02/24 Please no make-up, nail yoruba, hairspray, perfume, deodorant, or body powder the day of surgery.? No jewelry (including any body piercings) or valuables the day of surgery, leave them at home.? Please take a shower or bath the night before, && the morning of, surgery with an antibacterial soap/HIBICLEANSE scrub.? Wear comfortable, loose fitting clothing.? - Jewelry must be removed prior to entering the operating room.? Rings and piercings that are not removed may be cut off. - The hospital will not accept responsibility for valuables.? - Please leave all valuables, including medications, at home the day of surgery. If you are going home after surgery, a licensed driver operator must drive you home.? - NO public transportation without another adult if you receive anesthesia. - We recommend that an adult stay with you for 24 hours following discharge. - We also recommend that you do not drive, make important decision, drink alcoholic beverages, or take any drugs that were not prescribed by your health care provider for at least 24 hours after your discharge time. Follow any additional instructions given to you from your surgeon. Telephone instructions given to ___Patient/GF and asked if any additional questions and then verbalized understanding. Patient advised to call surgeon office or pre surgery nurse liaison [phone] if any additional questions.
--- NOTE | 2024-06-09 16:05 | P.PNAN_ITS ---
Anes - Initial Pre Proc Eval Procedure: Operation Date: 06/10/24 07:30 Proposed Procedures p Hand Assisted Laparoscopic Right Colectomy - Bari Main MD Date/Time: 06/09/24 16:05 Surgeon: Bari Main MD Pre Op Diagnosis: ascending colon polyp Patient Data Age: 73 Gender: M Height: 1.8 m Weight: 110.7 kg Last Vital Signs Temp 98.0 F 06/02/24 11:54 Pulse 74 06/02/24 11:54 Resp 16 06/02/24 11:54 BP 143/69 H 06/02/24 11:54 Pulse Ox 98 06/02/24 11:54 O2 Del Method Room Air 06/02/24 11:54 Allergies Allergy/AdvReac Type Severity Reaction Status Date / Time No Known Allergies Allergy Verified 06/10/24 07:09 Home Medications ?Medication ?Instructions ?Recorded ?Confirmed ?Type blood-glucose meter (Accu-Chek #1 ea 03/07/20 06/02/24 Rx Guide Glucose Meter) aspirin 325 mg tablet,delayed 325 mg PO DAILY 08/09/22 06/10/24 History release blood sugar diagnostic (Blood #100 ea 04/09/23 06/02/24 Rx Glucose Test strips) lancets 28 gauge (Medisense Thin See Rx Instructions .Route 04/09/23 06/02/24 Rx Lancets) .COMPLEX #100 ea diclofenac sodium 75 mg 75 mg PO BID PRN pain #60 tabs 06/26/23 06/10/24 Rx tablet,delayed release blood-glucose sensor (Dexcom G7 #9 ea 07/01/23 06/02/24 Rx Sensor device) omega 9-cet-tum-fish oil 1,000 mg 1 cap PO DAILY 02/18/24 06/10/24 History (120 mg-180 mg) capsule (Fish Oil) empagliflozin 25 mg tablet 25 mg PO DAILY #100 tabs 04/30/24 06/10/24 Rx (Jardiance) glipizide 10 mg tablet, extended 10 mg PO BID #200 tabs 04/30/24 06/10/24 Rx release 24 hr losartan 50 mg tablet 50 mg PO DAILY #90 tabs 04/30/24 06/10/24 Rx metformin 500 mg tablet,extended 500 mg PO BID #200 tabs 04/30/24 06/10/24 Rx release 24 hr metoprolol succinate 25 mg 25 mg PO DAILY #90 tabs 04/30/24 06/10/24 Rx tablet,extended release 24 hr simvastatin 40 mg tablet 40 mg PO DAILY #200 tabs 04/30/24 06/10/24 Rx ciprofloxacin HCl 500 mg tablet 500 mg PO .COMPLEX #1 tablet 05/14/24 06/10/24 Rx metronidazole 500 mg tablet 500 mg PO .COMPLEX #3 tabs 05/14/24 06/10/24 Rx Patient hx anesthesia problems: none Family hx anesthesia problems: none Results Review: All pre-operative results and documents have been reviewed as part of the pre- operative evaluation. [facility] Past Medical History Medical History Mass of colon (~04/2024) Colon polyp Severe obesity (BMI 35.0-39.9) with comorbidity Atrial flutter Vitamin D deficiency History of complete eye exam 08/2018 L1 vertebral fracture 03/01/2008 Dyslipidemia GERD without esophagitis Benign essential hypertension Type 2 diabetes mellitus without complication, without long-term current use of insulin Chronic low back pain without sciatica Surgical History Surgical History [place] teeth extracted (~2011) Hx of colonoscopy (~10/17/18) 10/17/2018 Family History Family History Mother Diabetes mellitus Father Hypertension Family history of throat cancer Social History Social History (Updated 05/14/24 @ 08:36 by Juan Sheriff MA) Smoking status: Former smoker (< 15 pack years) Tobacco type: cigarettes Second hand tobacco smoke exposure: No Smoking end date: 04/01/94 Alcohol intake: current Drinks per week: 3 Alcohol use details: consumes 1 beer rarely Substance use: never Substance use type: does not use Do You Feel Safe in your Home?: Yes Lack of Transportation: No Lack of Food: Never True Current Housing: I Have Housing Concerned About Future Housing: No Difficulty Paying Gas/Electric Bills: No Difficulty Paying for Meds: No Currently Unemployed: No Education: High School Diploma/GED Difficulty w/ Childcare or Family Care: No Living arrangements: with family Additional living arrangements comments: Girlfriend Occupation/Education: retired Gender identity (if verbalized by the patient): Male Spiritual care concerns: No Anes - Eval Final PreProcedure Day of Procedure 06/09/24 16:05 Patient weight: normal Heart: irregular rhythm Lungs: clear to auscultation Airway: Mallampati scale class III Neurological: alert and oriented Last oral intake: >/= 8 hours ASA classification: III Emergent: no Anesthetic plan: proceed Anesthesia type and monitoring: general ETT and standard monitoring Results Review: All pre-operative results and documents have been reviewed as part of the pre- operative evaluation. Informed Consent: The patient's anesthetic plan and its attendant risks and benefits were discussed with the patient/family/POA. Questions were solicited and answers provided to the satisfaction of the patient/family/POA.
[2024-06-10] VITALS (18 sets, daily range): BP systolic 106–150; BP diastolic 53–94; PULSE 70–101; RESP 11–20; TEMP 36.9–37.1; O2SAT 92–98; BMI 33.2
--- OUTSIDE RECORDS SUMMARY | 2024-06-10 00:46 | XMS_ITS | Clinical Summary ---
Author Organization [facility] Address [facility] [place] [address] Care Team Providers Care Public Health Technologist Name Role Phone Noemi Alejo MD Primary [...] Comments Blood Pressure 111/82 04/30/2022 12:59 PM FOUNDRY FINISHER Pulse 84 04/30/2022 10:11 AM FOUNDRY FINISHER Temperature 36.1 C (97 F) 04/30/2022 10:11 AM FOUNDRY FINISHER Respiratory Rate 18 04/30/2022 10:11 AM FOUNDRY FINISHER Oxygen Saturation 96% 04/30/2022 12:59 PM FOUNDRY FINISHER Inhaled Oxygen Concentration - - Weight 127 kg (280 lb) 04/23/2022 11:37 AM FOUNDRY FINISHER Height 181.6 cm (5' 11.5 ) 04/23/2022 11:[address] Body Mass Index 38.51 04/23/2022 11:37 AM FOUNDRY FINISHER Plan of Treatment Health Maintenance Due Date [...] this topic Medical Devices Implanted Type Area Band Singer Device Identifier Shelf Expiration Date Model / Serial / Lot Tecnis Synergy Iol Implanted:Qty: 1 on 04/30/2022 by Sha Johnson MD at [facility] Right: Eye [employer] [id number] 05/23/2024 [id number] / [id number] / Insurance [facility] Care Teams Public Health Technologist Relationship Specialty Start Date End Date Noemi Alejo MD [address] [place] [address] PCP - General FAMILY PRACTICE 04/30/22
[2024-06-10] MEDS: ACETAMINOPHEN 500 MG TABLET 1000 MG PO (07:00)
[2024-06-10] MEDS: ALVIMOPAN 12 MG CAPSULE PO (07:00)
--- NOTE | 2024-06-10 07:02 | WPDHPUPDATE1 ---
History and Physical Update Update Date/Time: 06/10/24 07:02 History and Physical has been reviewed, including an updated exam of the patient. There are NO changes in the patient's condition. Risks, benefits, and alternatives have been discussed and questions answered. Patient agrees to proceed with procedure.
[2024-06-10] MEDS: LACTATED RINGERS 1,000 ML 30 ML IV CONT ×2 (07:31→10:28)
[2024-06-10] MEDS: KETOROLAC 15 MG/ML VIAL (*BKC) IV PUSH (07:33)
[2024-06-10] MEDS: metroNIDAZOLE 500 MG/ISO 100ML 500 MG/100 ML BAG 100 MG IVPB (07:34)
[2024-06-10] MEDS: ceFAZolin 2 GM/D5W 50 ML 2 GM/50 ML BAG IVPB (07:34)
[2024-06-10] MEDS: BUPIVACAINE/EPINEPHRINE 0.5% 30 ML VIAL INFILTRATE (08:34)
--- NOTE | 2024-06-10 10:07 | W.PM.PROC2 ---
Procedure Note - Detailed Date of Procedure 06/10/24 Pre-op Diagnosis ascending colon polyp Post-op Diagnosis Same Procedure Performed Hand access laparoscopic right colectomy with hand-sewn ileotransverse anastomosis Surgeon Bari Main MD Revenue Liaison Perla Ndiaye HALL SUPERVISOR Anesthesia General and Local Indications Patient had a sizable polyp in the ascending colon on recent colonoscopy. Biopsies of this showed a villous adenoma without dysplasia. He is taken to surgery now for hand access laparoscopic right colectomy to remove the polyp Findings The area of the tattoo was easily seen. The polyp was palpable. There was no evidence of any other suspicious lesions or abnormalities. Description of Procedure Patient was taken to surgery and induced into general anesthesia. The abdomen is prepped and draped. The hand access port was marked on the skin in the midline above the umbilicus. Local was infiltrated into the skin and the subcutaneous. Incision was then made and dissection was carried down to the midline fascia. Additional local was infiltrated in the fascia. The fascia was opened and the peritoneum was opened. These openings were extended the length of the hand access incision. The Paul wound guard was then placed. A GelPort was placed. I placed a hand in the abdomen. In the right lower quadrant local anesthetic was infiltrated and a small incision made. A 5 mm trocar was placed here for the camera. Once the camera was in position and we had insufflated adequately, another 5 mm port was placed in the left lower quadrant. This was under direct visualization. Patient was then placed in Trendelenburg. I exposed the base of the mesentery to the distal ileum. Using the LigaSure, I divided the peritoneum over the distal ileal mesentery. I also freed some adhesions of the appendix and cecum so these were somewhat mobile. I dissected into the retroperitoneum in this area. I then bluntly dissected over the kidney up to the transverse colon mesentery in a medial-lateral dissection of the right colon. The LigaSure was used for dissection and for coagulation. I then went back to the distal ileum. With the ileum under tension, I was able to divide the mesentery to the distal ileum and created an opening in it. I then used the LigaSure and went anteriorly towards the distal ileum about 15 cm proximal to the ileocecal valve. I then dissected additional mesentery over to the ileocolic artery. I dissected around the ileocolic artery again using the LigaSure. Once the ileocolic artery was fairly well dissected, I used the LigaSure to coagulate and divide the ileocolic artery near its base. I continued to divide the ascending colon mesentery up towards the transverse colon. I then went and back to the cecum and divided the lateral peritoneal attachments to the cecum and ascending colon up to the hepatic flexure. The tattoo and polyp were more in the proximal ascending colon. They were easily seen and the polyp was palpable. At the hepatic flexure, I used LigaSure divide some hepatocolic ligaments. I then placed tension on the proximal transverse colon and displayed the transverse colon mesentery. Again using the LigaSure I carefully dissected through the transverse colon mesentery trying to take it close to its base. This was continued over beyond the origin of the transverse colon but not to midportion of the transverse colon. I divided also some of the omentum and additional hepatic colic ligament to further mobilize the transverse colon. At this point, we stopped insufflation and removed the GelPort. The ascending colon, distal ileum, proximal transverse colon were then eviscerated. I was able to see the planned areas of resection on both the distal ileum and the proximal transverse colon. A little more work on the transverse colon mesentery was done with the LigaSure. I then divided some of the fatty and mesenteric tissues around the ileum and proximal transverse colon with the cautery. A TLC 75 stapler was then used to divide the proximal transverse colon. A 2nd load was used to does by the distal ileum. The ascending colon specimen was then free it was passed off to pathology in formalin. I placed the distal ileum [id number] to the proximal transverse colon mesentery so their staple lines were side by side. I removed some fatty tissue from the area on the proximal transverse colon so that serosa would be more easily accessible. I also checked the mesentery to the distal ileum to ensure it was not twisted or otherwise convoluted. A hand-sewn 2 layer anastomosis was then created in [id number] but functional end-to-end anastomosis. The posterior outer layer was seromuscular Lembert sutures of 4-0 silk. The transverse colon and the distal ileum were then opened on each side. The posterior inner layer and anterior inner layer were then created using bidirectional running 4-0 chromic suture. Once this was tied, we completed the 2 layer anastomosis with 4-0 silk Lembert sutures for the anterior outer layer. The anastomosis looked quite good. There was no tension and both ends of the bowel appeared to be very well vascularized. I then dunked the anastomosis into the abdomen. We replaced the GelPort and insufflated the abdomen. We looked again laparoscopically at all areas of dissection. There was no sign of bleeding and the anastomosis looked very good. There did not appear to be any mesenteric or small bowel twisting. The 2 ends of bowel appeared very well vascularized. We then stopped insufflation and removed the instruments. The GelPort and Paul were removed. The trocars were removed. The surgical team changed gown and gloves and clean closure tray was used for wound closure. The hand access port was closed with bidirectional running 0 PDS suture. The subcu was closed with interrupted 3-0 Vicryl suture. Interrupted subcuticular 4-0 Vicryl skin stitches were used to loosely approximate the skin and the hand access incision. The hand access incision as well as both trocar sites were then closed at the skin level with running 4-0 Monocryl skin suture. The wounds were all dressed with Exofin surgical adhesive. The patient was then awakened taken to recovery in good condition. Sponge and needle counts were correct x2. Estimated Blood Loss -30 Drains No Packing No Pathology Yes (Ascending colon) Complications None Condition Stable Disposition PACU [facility] Billing Surgery - Charge Forward: Surgery Billing (Hand access laparoscopic right colectomy with hand-sewn ileotransverse anastomosis)
[2024-06-10] MEDS: INSULIN HUMAN REGULAR (*BKC) 100 UNITS/ML 15 UNITS SUB-Q (10:41)
[2024-06-10 11:02] LABS: Glucose Point of Care 218 mg/dl (65-105)
[2024-06-10 11:23] LABS: Glucose Point of Care 309 mg/dl (65-105)
[2024-06-10 11:23] LABS: Glucose Point of Care 292 mg/dl (65-105)
[2024-06-10 11:23] LABS: Glucose Point of Care 285 mg/dl (65-105)
[2024-06-10 14:17] LABS: Glucose Point of Care 269 mg/dl (65-105)
[2024-06-10] MEDS: LACTATED RINGERS 1,000 ML 100 ML IV CONT ×2 (14:36→23:55)
[2024-06-10] MEDS: METOPROLOL SUCCINATE EXT REL 25 MG TABCR PO (14:38)
[2024-06-10] MEDS: INSULIN ASPART (*BKC) 100 UNITS/ML SUB-Q ×3 (14:38→20:01)
--- NOTE | 2024-06-10 14:40 | P.CONIM_ITS ---
Assessment and Plan Assessment and plan (1) Type 2 diabetes mellitus without complication, without long-term current use of insulin: Code(s): E11.9 - Type 2 diabetes mellitus without complications Status: Acute Assessment and Plan: * HgbA1c 7.2% on 04/30/2024. * HgbA1C pending. * SSI with hypoglycemic protocol. * Continue Jardiance. Hold Metformin and Glipizide while hospitalized. (2) Polyp of ascending colon: Code(s): K63.5 - Polyp of colon Status: Acute Assessment and Plan: * 06/10/24- hand access laparoscopic colectomy with hand-sewn ileotransverse anastomosis. * Pain control per surgery. * Lovenox 40 mg subq daily. * Incentive spirometer. * Entereg 12 mg PO q 12. * Received IV Cefazolin and Metronidiazole. * LR @ 100 ml/hr. (3) Afib: Code(s): I48.91 - Unspecified atrial fibrillation Status: Acute Assessment and Plan: * Metoprolol succinate 25 mg PO daily. * Aspirin 325 mg PO daily. (4) Hypertension: Code(s): I10 - Essential (primary) hypertension Status: Acute Assessment and Plan: * Blood pressure 140/60. * Losartan 50 mg PO daily. (5) Obstructive sleep apnea: Code(s): G47.33 - Obstructive sleep apnea (adult) (pediatric) Status: Acute Assessment and Plan: * CPAP at night and while napping. (6) Dyslipidemia: Code(s): E78.5 - Hyperlipidemia, unspecified Status: Acute Assessment and Plan: * Simvastatin 40 mg PO daily. HPI Date of Consult Consult date: 06/10/24 Requesting Physician: Bari Main MD Primary Care Provider: Noemi Alejo MD Consult Narrative Reason for consult: Medical management Narrative: Fidel March is a 73 year old male admitted to hospital for hand access laparoscopic colectomy with hand-sewn ileotransverse anastomosis. Hospitalist consulted for medical management. Patient reports abdominal pain is a 4 , constant, and aching. Patient denies chest pain, palpitations, headache, dizziness, nausea, or vomiting. Review of Systems Review of Systems: All systems reviewed & are unremarkable except as noted in HPI and below PMFSH Past Medical History Medical History Mass of colon (~04/2024) Colon polyp Severe obesity (BMI 35.0-39.9) with comorbidity Atrial flutter Vitamin D deficiency History of complete eye exam 08/2018 L1 vertebral fracture 03/01/2008 Dyslipidemia GERD without esophagitis Benign essential hypertension Type 2 diabetes mellitus without complication, without long-term current use of insulin Chronic low back pain without sciatica Surgical History Surgical History [place] teeth extracted (~2011) Hx of colonoscopy (~10/17/18) 10/17/2018 Family History Family History Mother Diabetes mellitus Father Hypertension Family history of throat cancer Social History Social History (Updated 05/14/24 @ 08:36 by Juan Sheriff MA) Smoking packs per day: 2 Smoking cigarettes per day: 40.0 Years smoked: 30 Smoking pack-years: 60.00 Smoking status: Former smoker (< 15 pack years) Tobacco type: cigarettes Second hand tobacco smoke exposure: No Smoking end date: 04/01/94 Alcohol intake: current Drinks per week: 3 Alcohol use details: consumes 1 beer rarely Substance use: never Substance use type: does not use Do You Feel Safe in your Home?: Yes Lack of Transportation: No Lack of Food: Never True Current Housing: I Have Housing Concerned About Future Housing: No Difficulty Paying Gas/Electric Bills: No Difficulty Paying for Meds: No Currently Unemployed: No Education: High School Diploma/GED Difficulty w/ Childcare or Family Care: No Living arrangements: with family Additional living arrangements comments: Girlfriend Occupation/Education: retired Gender identity (if verbalized by the patient): Male Spiritual care concerns: No Meds Home Medications and Allergies Home Medications ?Medication ?Instructions ?Recorded ?Confirmed ?Type blood-glucose meter (Accu-Chek #1 ea 03/07/20 06/02/24 Rx Guide Glucose Meter) aspirin 325 mg tablet,delayed 325 mg PO DAILY 08/09/22 06/10/24 History release blood sugar diagnostic (Blood #100 ea 04/09/23 06/02/24 Rx Glucose Test strips) lancets 28 gauge (Medisense Thin See Rx Instructions .Route 04/09/23 06/02/24 Rx Lancets) .COMPLEX #100 ea diclofenac sodium 75 mg 75 mg PO BID PRN pain #60 tabs 06/26/23 06/10/24 Rx tablet,delayed release blood-glucose sensor (Dexcom G7 #9 ea 07/01/23 06/02/24 Rx Sensor device) omega 7-qaq-voy-fish oil 1,000 mg 1 cap PO DAILY 02/18/24 06/10/24 History (120 mg-180 mg) capsule (Fish Oil) empagliflozin 25 mg tablet 25 mg PO DAILY #100 tabs 04/30/24 06/10/24 Rx (Jardiance) glipizide 10 mg tablet, extended 10 mg PO BID #200 tabs 04/30/24 06/10/24 Rx release 24 hr losartan 50 mg tablet 50 mg PO DAILY #90 tabs 04/30/24 06/10/24 Rx metformin 500 mg tablet,extended 500 mg PO BID #200 tabs 04/30/24 06/10/24 Rx release 24 hr metoprolol succinate 25 mg 25 mg PO DAILY #90 tabs 04/30/24 06/10/24 Rx tablet,extended release 24 hr simvastatin 40 mg tablet 40 mg PO DAILY #200 tabs 04/30/24 06/10/24 Rx ciprofloxacin HCl 500 mg tablet 500 mg PO .COMPLEX #1 tablet 05/14/24 06/10/24 Rx metronidazole 500 mg tablet 500 mg PO .COMPLEX #3 tabs 05/14/24 06/10/24 Rx Allergies Allergy/AdvReac Type Severity Reaction Status Date / Time No Known Allergies Allergy Verified 06/10/24 07:09 Vital Signs Vital Signs - 24 hr 06/10/24 07:11 06/10/24 10:28 06/10/24 10:43 Temperature 98.6 F 98.8 F Pulse Rate 86 85 82 Respiratory Rate 11 L 12 Blood Pressure 150/86 H 123/94 H 128/60 Pulse Oximetry 98 98 98 Oxygen Delivery Room Air Simple Face Mask Simple Face Mask Oxygen Flow Rate 8 8 06/10/24 10:50 06/10/24 10:58 06/10/24 11:13 Temperature Pulse Rate 85 79 Respiratory Rate 16 13 Blood Pressure 125/55 L 118/55 L Pulse Oximetry 96 94 94 Oxygen Delivery Room Air Room Air Room Air Oxygen Flow Rate 06/10/24 11:28 06/10/24 11:43 06/10/24 12:09 Temperature Pulse Rate 78 78 80 Respiratory Rate 15 15 15 Blood Pressure 106/61 110/62 110/53 L Pulse Oximetry 92 94 94 Oxygen Delivery Nasal Cannula Nasal Cannula Nasal Cannula Oxygen Flow Rate 1 1 1 06/10/24 12:40 06/10/24 13:14 06/10/24 13:29 Temperature 98.4 F Pulse Rate 82 82 75 Respiratory Rate 18 18 Blood Pressure 125/53 L 136/69 131/65 Pulse Oximetry 95 96 94 Oxygen Delivery Room Air Oxygen Flow Rate 06/10/24 13:59 06/10/24 14:38 Temperature Pulse Rate 73 70 Respiratory Rate 18 Blood Pressure 140/60 Pulse Oximetry 95 Oxygen Delivery Oxygen Flow Rate Exam Const: General: no acute distress and uncomfortable Eyes: Sclera: sclerae normal Resp: Effort & Inspection: normal respiratory effort Auscultation: clear to auscultation bilaterally Cardio: Rate: regular rate Rhythm: regular rhythm GI: Other: Hypoactive bowel sounds, abdomen slightly tender. Incisions glued and sang roximated. Skin: Other: Incisions glued and approximated. Neuro: Speech: normal speech Extrem: General: no pedal edema Psych: Mental Status: mental status grossly normal Affect: normal affect Quality VTE Prophylaxis VTE prophylaxis: mechanical ordered and pharmacologic ordered Hospitalist MIPS Advance Care Plan I have confirmed that the patient's Advanced Care Plan is present, code status is documented, or surrogate decision maker is listed in patient medical record.: Yes Medication Reconciliation I have utilized all available resources to obtain, update and review the patients current medications (includes all prescriptions, OTC, herbals, cannabis, and nutritional supplements).: Yes
[2024-06-10] MEDS: oxyCODONE/ACETAMINOPHEN (*CRX) 5-325 MG TABLET 1 TABLET PO ×3 (14:41→23:56)
--- NOTE | 2024-06-10 16:18 | ADMGEN ---
This patient, Fidel March, was admitted to Medical Room 342-01. Patient/family oriented to hospital policies and general routines including ID bracelet, bed and alarms, visiting hours, pain management, procedures, bathroom and other care routines, personal items, smoking policy, room service/diet, and visiting hours. Information on how to activate the Rapid Response Team has been discussed. Patient/Family are encouraged to report perceived risks to care and to ask questions if they do not understand what they are told or what they should do.
[2024-06-10 16:37] LABS: Glucose Point of Care 337 mg/dl (65-105)
[2024-06-10 16:49] LABS: Hemoglobin A1C 7.3 % (<5.7)
[2024-06-10] MEDS: FAMOTIDINE 20 MG/2 ML VIAL IV PUSH (19:34)
[2024-06-10] MEDS: ONDANSETRON INJ 4 MG/2 ML VIAL IV PUSH (19:40)
[2024-06-10 21:09] LABS: Glucose Point of Care 223 mg/dl (65-105)
[2024-06-11] VITALS (12 sets, daily range): BP systolic 102–124; BP diastolic 48–60; PULSE 45–69; RESP 17–18; TEMP 36.2–37.1; O2SAT 91–97
[2024-06-11] MEDS: oxyCODONE/ACETAMINOPHEN (*CRX) 5-325 MG TABLET 1 TABLET PO ×3 (03:44→13:21)
[2024-06-11 05:38] LABS: Hemoglobin 12.5 g/dL (14.0-18.0); Mean Corpuscular HGB Conc 32.1 g/dl (32-36); Mean Corpuscular Hemoglobin 30.3 pg (26-34); Mean Corpuscular Volume 94.4 fl (80-100); Mean Platelet Volume 11.1 fl (7.4-10.4); Platelet Count Result 149 k/mm3 (150-375); Red Blood Count 4.13 M/mm3 (4.6-6.20); Red Cell Distribution Width 13.6 % (11.5-14.5); White Blood Count 8.3 K/mm3 (4.5-10.0)
[2024-06-11 05:52] LABS: Potassium 4.3 mmol/L (3.4-5.0)
[2024-06-11 05:53] LABS: Anion Gap 9 mmol/L (4-12); Blood Urea Nitrogen 11 mg/dL (9-20); Calcium 8.9 mg/dL (8.4-10.2); Carbon Dioxide 25 mmol/L (22-30); Chloride 105 mmol/L (98-107); Estimated CRCL calculation 103 ml/min; Estimated Glomerular Filt Rate > 60; Glucose 187 mg/dL (65-110); Sodium 139 mmol/L (137-145)
[2024-06-11 08:34] LABS: Glucose Point of Care 272 mg/dl (65-105)
[2024-06-11] MEDS: LOSARTAN POTASSIUM 50 MG TABLET PO (08:52)
[2024-06-11] MEDS: ASPIRIN 325 MG ENTERIC TABLET PO (08:52)
[2024-06-11] MEDS: EMPAGLIFLOZIN 25 MG TABLET PO (08:52)
[2024-06-11] MEDS: SIMVASTATIN 20 MG TABLET 40 MG PO (08:52)
[2024-06-11] MEDS: FAMOTIDINE 20 MG/2 ML VIAL IV PUSH (08:55)
[2024-06-11] MEDS: INSULIN ASPART (*BKC) 100 UNITS/ML SUB-Q ×2 (09:00→13:33)
[2024-06-11] MEDS: ENOXAPARIN 40 MG/0.4 ML SYRINGE SUB-Q (09:03)
--- NOTE | 2024-06-11 11:14 | P.CONIM_ITS ---
Assessment and Plan Assessment and plan (1) Type 2 diabetes mellitus without complication, without long-term current use of insulin: Code(s): E11.9 - Type 2 diabetes mellitus without complications Status: Acute Assessment and Plan: * HgbA1c 7.2% on 04/30/2024. * HgbA1C pending. * SSI with hypoglycemic protocol. * Continue Jardiance. Hold Metformin and Glipizide while hospitalized. (2) Polyp of ascending colon: Code(s): K63.5 - Polyp of colon Status: Acute Assessment and Plan: * 06/10/24- hand access laparoscopic colectomy with hand-sewn ileotransverse anastomosis. * Pain control per surgery. * Lovenox 40 mg subq daily. * Incentive spirometer. * Entereg 12 mg PO q 12. * Received IV Cefazolin and Metronidiazole. * LR @ 100 ml/hr. (3) Afib: Code(s): I48.91 - Unspecified atrial fibrillation Status: Acute Assessment and Plan: * Metoprolol succinate 25 mg PO daily. * Aspirin 325 mg PO daily. * - holding metoprolol as hR was 45's this am * -monitor closely as usually get 110 in the evening. may need to restart but at a lower dose- 12.5 mg. Discussed with RN, pt and pt's . (4) Hypertension: Code(s): I10 - Essential (primary) hypertension Status: Acute Assessment and Plan: * Blood pressure 140/60. * Losartan 50 mg PO daily. (5) Obstructive sleep apnea: Code(s): G47.33 - Obstructive sleep apnea (adult) (pediatric) Status: Acute Assessment and Plan: * CPAP at night and while napping. (6) Dyslipidemia: Code(s): E78.5 - Hyperlipidemia, unspecified Status: Acute Assessment and Plan: * Simvastatin 40 mg PO daily. HPI Date of Consult Consult date: 06/11/24 Requesting Physician: Bari Main MD Primary Care Provider: Noemi Alejo MD Consult Narrative Narrative: Fidel March is a 73 year old male admitted to hospital for hand access laparoscopic colectomy with hand-sewn ileotransverse anastomosis. Hospitalist consulted for medical management. Patient reports abdominal pain is a 4 , constant, and aching. Patient denies chest pain, palpitations, headache, dizziness, nausea, or vomiting. Pt reports that he was on metoprolol before and it was causing him to feel dizzy (25 mg). He stopped it on his own but the pcp made him restart it. His hr had been below 60 few times with couple 110's in the evening. Will monitor closer and may need to restart metoprolol but at a lower dose. Review of Systems 2 Review of Systems: All systems reviewed & are unremarkable except as noted in HPI and below PMFSH Past Medical History Medical History Mass of colon (~04/2024) Colon polyp Severe obesity (BMI 35.0-39.9) with comorbidity Atrial flutter Vitamin D deficiency History of complete eye exam 08/2018 L1 vertebral fracture 03/01/2008 Dyslipidemia GERD without esophagitis Benign essential hypertension Type 2 diabetes mellitus without complication, without long-term current use of insulin Chronic low back pain without sciatica Surgical History Surgical History [place] teeth extracted (~2011) Hx of colonoscopy (~10/17/18) 10/17/2018 Family History Family History Mother Diabetes mellitus Father Hypertension Family history of throat cancer Social History Social History (Updated 05/14/24 @ 08:36 by Juan Sheriff MA) Smoking packs per day: 2 Smoking cigarettes per day: 40.0 Years smoked: 30 Smoking pack-years: 60.00 Smoking status: Former smoker Second hand tobacco smoke exposure: No Alcohol intake: current Drinks per week: 3 Alcohol use details: consumes 1 beer rarely Substance use: never Substance use type: does not use Do You Feel Safe in your Home?: Yes Lack of Transportation: No Lack of Food: Never True Current Housing: I Have Housing Concerned About Future Housing: No Difficulty Paying Gas/Electric Bills: No Difficulty Paying for Meds: No Currently Unemployed: No Education: High School Diploma/GED Difficulty w/ Childcare or Family Care: No Living arrangements: with family Additional living arrangements comments: Girlfriend Occupation/Education: retired Gender identity (if verbalized by the patient): Male Spiritual care concerns: No Meds Home Medications and Allergies Home Medications ?Medication ?Instructions ?Recorded ?Confirmed ?Type blood-glucose meter (Accu-Chek #1 ea 03/07/20 06/02/24 Rx Guide Glucose Meter) aspirin 325 mg tablet,delayed 325 mg PO DAILY 08/09/22 06/10/24 History release blood sugar diagnostic (Blood #100 ea 04/09/23 06/02/24 Rx Glucose Test strips) lancets 28 gauge (Medisense Thin See Rx Instructions .Route 04/09/23 06/02/24 Rx Lancets) .COMPLEX #100 ea diclofenac sodium 75 mg 75 mg PO BID PRN pain #60 tabs 06/26/23 06/10/24 Rx tablet,delayed release blood-glucose sensor (Dexcom G7 #9 ea 07/01/23 06/02/24 Rx Sensor device) omega 1-qxl-gqc-fish oil 1,000 mg 1 cap PO DAILY 02/18/24 06/10/24 History (120 mg-180 mg) capsule (Fish Oil) empagliflozin 25 mg tablet 25 mg PO DAILY #100 tabs 04/30/24 06/10/24 Rx (Jardiance) glipizide 10 mg tablet, extended 10 mg PO BID #200 tabs 04/30/24 06/10/24 Rx release 24 hr losartan 50 mg tablet 50 mg PO DAILY #90 tabs 04/30/24 06/10/24 Rx metformin 500 mg tablet,extended 500 mg PO BID #200 tabs 04/30/24 06/10/24 Rx release 24 hr metoprolol succinate 25 mg 25 mg PO DAILY #90 tabs 04/30/24 06/10/24 Rx tablet,extended release 24 hr simvastatin 40 mg tablet 40 mg PO DAILY #200 tabs 04/30/24 06/10/24 Rx ciprofloxacin HCl 500 mg tablet 500 mg PO .COMPLEX #1 tablet 05/14/24 06/10/24 Rx metronidazole 500 mg tablet 500 mg PO .COMPLEX #3 tabs 05/14/24 06/10/24 Rx Allergies Allergy/AdvReac Type Severity Reaction Status Date / Time No Known Allergies Allergy Verified 06/10/24 07:09 Vital Signs Vital Signs - 24 hr 06/10/24 11:28 06/10/24 11:43 06/10/24 12:09 Temperature Pulse Rate 78 78 80 Respiratory Rate 15 15 15 Blood Pressure 106/61 110/62 110/53 L Pulse Oximetry 92 94 94 Oxygen Delivery Nasal Cannula Nasal Cannula Nasal Cannula Oxygen Flow Rate 1 1 1 06/10/24 12:40 06/10/24 13:14 06/10/24 13:29 Temperature 98.4 F Pulse Rate 82 82 75 Respiratory Rate 18 18 Blood Pressure 125/53 L 136/69 131/65 Pulse Oximetry 95 96 94 Oxygen Delivery Room Air Oxygen Flow Rate 06/10/24 13:59 06/10/24 14:38 06/10/24 14:59 Temperature Pulse Rate 73 70 70 Respiratory Rate 18 18 Blood Pressure 140/60 130/66 Pulse Oximetry 95 95 Oxygen Delivery Oxygen Flow Rate 06/10/24 15:50 06/10/24 20:00 06/10/24 20:00 Temperature Pulse Rate 71 101 H Respiratory Rate 20 Blood Pressure Pulse Oximetry 92 Oxygen Delivery Room Air Room Air Oxygen Flow Rate 06/10/24 20:05 06/11/24 00:00 06/11/24 00:00 Temperature 98.7 F 97.9 F Pulse Rate 88 51 L 65 Respiratory Rate 18 17 Blood Pressure 118/55 L 106/54 L Pulse Oximetry 96 95 Oxygen Delivery Oxygen Flow Rate 06/11/24 03:42 06/11/24 04:00 06/11/24 09:45 Temperature 98.2 F 97.2 F L Pulse Rate 50 L 45 L 58 L Respiratory Rate 18 18 Blood Pressure 112/53 L 115/57 L Pulse Oximetry 96 97 Oxygen Delivery Oxygen Flow Rate Exam 2 Const: General: no acute distress and uncomfortable Eyes: Sclera: sclerae normal Resp: Effort & Inspection: normal respiratory effort Auscultation: clear to auscultation bilaterally Cardio: Rate: regular rate Rhythm: regular rhythm GI: Other: Hypoactive bowel sounds, abdomen slightly tender. Incisions glued and approximated. Skin: Other: Incisions glued and approximated. Neuro: Speech: normal speech Extrem: General: no pedal edema Psych: Mental Status: mental status grossly normal Affect: normal affect Results Labs 06/11/24 05:11 06/11/24 05:11 Labs: Short CBC 06/11/24 Range/Units 05:11 WBC 8.3 (4.5-10.0) K/mm3 Hgb 12.5 L (14.0-18.0) g/dL Hct 39.0 L (42.0-52.0) % Plt Count 149 L (150-375) k/mm3 BMP 06/11/24 05:11 Sodium 139 Potassium 4.3 Chloride 105 Carbon Dioxide 25 BUN 11 Creatinine 0.69 L Glucose 187 H Calcium 8.9 Quality VTE Prophylaxis VTE prophylaxis: mechanical ordered and pharmacologic ordered
--- NOTE | 2024-06-11 12:15 | PM.PNGS ---
Progress Note: A&P Assessment and Plan (1) Polyp of ascending colon: Qualifiers: Colon polyp type: adenomatous Qualified Code(s): D12.2 - Benign neoplasm of ascending colon Code(s): K63.5 - Polyp of colon Status: Chronic Assessment and Plan: Patient looks good postop day 1. Status post hand access laparoscopic right colectomy. He is already having some bowel movements. He has no nausea at all. He is having minimal, appropriate pain. I will stop his Alvimopan. I will advance him to a diabetic diet, low fiber. Increase ambulation. Recheck labs again tomorrow. Possibly discharge if continues to do well. (2) Type 2 diabetes mellitus without complication, without long-term current use of insulin: Code(s): E11.9 - Type 2 diabetes mellitus without complications Status: Chronic Assessment and Plan: Hospitalist managing and following (3) Afib: Qualifiers: Atrial fibrillation type: paroxysmal Qualified Code(s): I48.0 - Paroxysmal atrial fibrillation Code(s): I48.91 - Unspecified atrial fibrillation Status: Chronic Assessment and Plan: On telemetry, no tachycardia (4) Obstructive sleep apnea: Code(s): G47.33 - Obstructive sleep apnea (adult) (pediatric) Status: Chronic Assessment and Plan: On home CPAP settings Subjective Subjective Date/Time Seen: 06/11/24 12:15 Patient reports: pain is less, tolerating liquids well, voiding w/o difficulty, flatus, bowel movement and afebrile Exam Const: General: comfortable and no acute distress Orientation/consciousness: patient oriented x3 GI: Inspection: non-distended and incision (Well approximated, healing, no drainage) GI Palp: Yes Soft to palpation, Yes Tenderness to palpation present (GI) (Appropriate postoperative tenderness), No Guarding due to palpation present (GI), No Hernia present, No Palpable mass present and No Rebound tenderness present Neuro: General: patient oriented x3 and no focal motor deficits Extrem: General: no calf tenderness and no edema Psych: Affect: normal affect Insight: Good insight present (Psych) Judgement: Good judgement present (Psych) Objective Data Vital Signs Vital Signs: Vital Signs - 24 hr 06/10/24 12:40 06/10/24 13:14 06/10/24 13:29 Temperature 36.9 C Pulse Rate 82 82 75 Respiratory Rate 18 18 Blood Pressure 125/53 L 136/69 131/65 Pulse Oximetry 95 96 94 Oxygen Delivery Room Air 06/10/24 13:59 06/10/24 14:38 06/10/24 14:59 Temperature Pulse Rate 73 70 70 Respiratory Rate 18 18 Blood Pressure 140/60 130/66 Pulse Oximetry 95 95 Oxygen Delivery 06/10/24 15:50 06/10/24 20:00 06/10/24 20:00 Temperature Pulse Rate 71 101 H Respiratory Rate 20 Blood Pressure Pulse Oximetry 92 Oxygen Delivery Room Air Room Air 06/10/24 20:05 06/11/24 00:00 06/11/24 00:00 Temperature 37.1 C 36.6 C Pulse Rate 88 51 L 65 Respiratory Rate 18 17 Blood Pressure 118/55 L 106/54 L Pulse Oximetry 96 95 Oxygen Delivery 06/11/24 03:42 06/11/24 04:00 06/11/24 09:45 Temperature 36.8 C 36.2 C L Pulse Rate 50 L 45 L 58 L Respiratory Rate 18 18 Blood Pressure 112/53 L 115/57 L Pulse Oximetry 96 97 Oxygen Delivery Intake/Output Intake/Output: Intake & Output 06/08/24 06/09/24 06/10/24 06/11/24 23:59 23:59 23:59 23:59 Intake Total 2490 220 Balance 2490 220 Meds/Results Medications: Active Medications Generic Name Dose Route Start Last Admin Trade Name Freq PRN Reason Stop Dose Admin Acetaminophen 500 mg 06/10/24 13:14 Acetaminophen 500 Mg Tablet PO Q6H PRN Pain Rated 1-3 Hydrocodone Bitart/Acetaminophen 1 tab 06/10/24 13:14 Hydrocodone/Acetaminophen (*Crx) 10-325 Mg Tablet PO Q4H PRN Pain Rated 7-10 Aspirin 325 mg 06/11/24 09:00 06/11/24 08:52 Aspirin 325 Mg Enteric Tablet PO 325 mg DAILY MARCELLO Administration Dextrose 12.5 gm 06/10/24 13:14 Dextrose 50% 25 Gm/50 Ml Syringe IV PUSH PRN PRN Hypoglycemia Protocol Diclofenac Sodium 75 mg 06/10/24 13:14 Diclofenac Sod 75 Mg Tablet.Ec PO BID PRN pain Empagliflozin 25 mg 06/11/24 09:00 06/11/24 08:52 Empagliflozin 25 Mg Tablet PO 25 mg DAILY MARCELLO Administration Enoxaparin Sodium 40 mg 06/11/24 09:00 06/11/24 09:03 Enoxaparin 40 Mg/0.4 Ml Syringe SUB-Q 40 mg DAILY MARCELLO Administration Famotidine 20 mg 06/11/24 21:00 Famotidine 20 Mg Tablet PO Q12HR MARCELLO Glucagon 1 mg 06/10/24 13:14 Glucagon For Inj 1 Mg Vial IM PRN PRN Hypoglycemia Protocol Glucose 15 gm 06/10/24 13:14 Glucose Oral Gel 15 Gm Of Glucse In 37.5 Gm Tube PO PRN PRN Hypoglycemia Protocol Ibuprofen 800 mg in 200 mls @ 400 mls/hr 06/10/24 13:14 Caldolor 800 Mg/200 Ml IVPB Q6H PRN Breakthrough Pain Rated 1-3 or NPO Dextrose 1,000 mls @ 100 mls/hr 06/10/24 13:14 Dextrose 5% 1,000 Ml IVPB PRN PRN Hypoglycemia Protocol Insulin Aspart 3 - 6 units 06/10/24 13:14 06/11/24 09:00 Insulin Aspart (*Bkc) 100 Units/Ml SUB-Q 4 units TIDWM [facility] Administration Protocol Insulin Aspart 1 - 3 units 06/10/24 21:00 06/10/24 20:01 Insulin Aspart (*Bkc) 100 Units/Ml SUB-Q 1 units HS [facility] Administration Protocol Losartan Potassium 50 mg 06/11/24 09:00 06/11/24 08:52 Losartan Potassium 50 Mg Tablet PO 50 mg DAILY MARCELLO Administration Metoprolol Succinate 25 mg 06/11/24 09:00 06/11/24 11:28 Metoprolol Succinate Ext Rel 25 Mg Tabcr PO Not Given QAM [facility] Morphine Sulfate 2 mg 06/10/24 13:14 Morphine Sulfate (*Crx) 2 Mg/Ml Inj IV PUSH Q2H PRN Breakthrough Pain Rated 4-6 or NPO Morphine Sulfate 4 mg 06/10/24 13:14 Morphine Sulfate (*Crx) 4 Mg/Ml Inj IV PUSH Q2H PRN Breakthrough Pain Rated 7-10 or NPO Naloxone HCl 0.1 mg 06/10/24 13:14 Naloxone Hcl 0.4 Mg/Ml Vial IV PUSH Q2M PRN Opiate Reversal Ondansetron HCl 4 mg 06/10/24 13:14 06/10/24 19:40 Ondansetron Inj 4 Mg/2 Ml Vial IV PUSH 4 mg Q4H PRN Administration Nausea And Vomiting Oxycodone/Acetaminophen 1 tablet 06/10/24 13:14 06/11/24 08:53 Oxycodone/Acetaminophen (*Crx) 5-325 Mg Tablet PO 1 tablet Q4H PRN Administration Pain Rated 4-6 Simvastatin 40 mg 06/11/24 09:00 06/11/24 08:52 Simvastatin 20 Mg Tablet PO 40 mg DAILY MARCELLO Administration Labs Labs: Laboratory Results - last 24 hr 06/10/24 06/10/24 06/10/24 13:34 14:11 16:31 WBC RBC Hgb Hct MCV MCH MCHC RDW Plt Count MPV Sodium Potassium Chloride Carbon Dioxide Anion Gap BUN Creatinine Estim Creat Clear Calc Estimated GFR Glucose POC Capillary Glucose 269 H 337 H Hemoglobin A1c 7.3 H Calcium 06/10/24 06/11/24 06/11/24 19:58 05:11 08:31 WBC 8.3 RBC 4.13 L Hgb 12.5 L Hct 39.0 L MCV 94.4 MCH 30.3 MCHC 32.1 RDW 13.6 Plt Count 149 L MPV 11.1 H Sodium 139 Potassium 4.3 Chloride 105 Carbon Dioxide 25 Anion Gap 9 BUN 11 Creatinine 0.69 L Estim Creat Clear Calc 103 Estimated GFR > 60 Glucose 187 H POC Capillary Glucose 223 H 272 H Hemoglobin A1c Calcium 8.9
[2024-06-11 12:32] LABS: Glucose Point of Care 224 mg/dl (65-105)
[2024-06-11 16:54] LABS: Glucose Point of Care 153 mg/dl (65-105)
[2024-06-11] MEDS: HYDROcodone/acetaminophen (*CRX) 10-325 MG TABLET 1 TAB PO ×2 (17:19→21:13)
[2024-06-11] MEDS: FAMOTIDINE 20 MG TABLET PO (20:28)
[2024-06-11 21:24] LABS: Glucose Point of Care 147 mg/dl (65-105)
[2024-06-12] VITALS (8 sets, daily range): BP systolic 117–137; BP diastolic 55–62; PULSE 52–71; RESP 17–18; TEMP 36.3–36.7; O2SAT 92–97
[2024-06-12] MEDS: HYDROcodone/acetaminophen (*CRX) 10-325 MG TABLET 1 TAB PO ×2 (02:05→06:04)
[2024-06-12 05:40] LABS: Hematocrit 39.4 % (42.0-52.0); Hemoglobin 12.5 g/dL (14.0-18.0); Immature Platelet Fraction Pct 6.1 % (0.9-11.2); Mean Corpuscular HGB Conc 31.7 g/dl (32-36); Mean Corpuscular Hemoglobin 30.1 pg (26-34); Mean Corpuscular Volume 94.9 fl (80-100); Mean Platelet Volume 11.5 fl (7.4-10.4); Platelet Count Result 131 k/mm3 (150-375); Red Blood Count 4.15 M/mm3 (4.6-6.20); Red Cell Distribution Width 13.6 % (11.5-14.5); White Blood Count 8.1 K/mm3 (4.5-10.0)
[2024-06-12 05:51] LABS: Anion Gap 10 mmol/L (4-12); Blood Urea Nitrogen 11 mg/dL (9-20); Calcium 8.7 mg/dL (8.4-10.2); Carbon Dioxide 22 mmol/L (22-30); Chloride 105 mmol/L (98-107); Estimated CRCL calculation 110 ml/min; Estimated Glomerular Filt Rate > 60; Glucose 136 mg/dL (65-110); Potassium 3.8 mmol/L (3.4-5.0); Sodium 137 mmol/L (137-145)
[2024-06-12 08:53] LABS: Glucose Point of Care 131 mg/dl (65-105)
[2024-06-12] MEDS: EMPAGLIFLOZIN 25 MG TABLET PO (09:22)
[2024-06-12] MEDS: SIMVASTATIN 20 MG TABLET 40 MG PO (09:22)
[2024-06-12] MEDS: FAMOTIDINE 20 MG TABLET PO (09:22)
[2024-06-12] MEDS: ASPIRIN 325 MG ENTERIC TABLET PO (09:22)
[2024-06-12] MEDS: LOSARTAN POTASSIUM 50 MG TABLET PO (09:24)
[2024-06-12] MEDS: ENOXAPARIN 40 MG/0.4 ML SYRINGE SUB-Q (09:25)
--- NOTE | 2024-06-12 10:41 | P.CONIM_ITS ---
Assessment and Plan Assessment and plan (1) Type 2 diabetes mellitus without complication, without long-term current use of insulin: Code(s): E11.9 - Type 2 diabetes mellitus without complications Status: Chronic Assessment and Plan: * HgbA1c 7.2% on 04/30/2024. * HgbA1C - 7.3 * SSI with hypoglycemic protocol. * Continue Jardiance. Hold Metformin and Glipizide while hospitalized. * pt was on glipizide for over 10 years- questionable benefits at this point. Discussed. Will stop glipizide to avoid hypoglycemia risks/episodes as pt is on 2 mg of ozempic. He had to stop it 2 weeks prior to surgery- so it had been about 3 weeks since the last dose. he will need to decrease dose of ozempic to 1 mg for a week or two to avoid side effects. * need to f/u with pcp for further monitoring- goal of hga1c- under 7. (2) Polyp of ascending colon: Qualifiers: Colon polyp type: adenomatous Qualified Code(s): D12.2 - Benign neoplasm of ascending colon Code(s): K63.5 - Polyp of colon Status: Chronic Assessment and Plan: * 06/10/24- hand access laparoscopic colectomy with hand-sewn ileotransverse anastomosis. * Pain control per surgery. * Lovenox 40 mg subq daily. * Incentive spirometer. * Entereg 12 mg PO q 12. * Received IV Cefazolin and Metronidiazole. further mngmn per surgical team - including home antibiotics. (3) Afib: Qualifiers: Atrial fibrillation type: paroxysmal Qualified Code(s): I48.0 - Paroxysmal atrial fibrillation Code(s): I48.91 - Unspecified atrial fibrillation Status: Chronic Assessment and Plan: * Metoprolol succinate 25 mg PO daily. * Aspirin 325 mg PO daily. * - holding metoprolol as hR was 45's this am * -monitor closely as usually get 110 in the evening. may need to restart but at a lower dose- 12.5 mg. Discussed with RN, pt and pt's . * * holding it for now as hr in high 50's * discussed in details- hold if hr below 60 as it could be causing him to feel dizzy. close monitoring for bp and hr and log- f/u with cards within a week after discharge for further instructions. (4) Hypertension: Code(s): I10 - Essential (primary) hypertension Status: Acute Assessment and Plan: * Blood pressure 140/60. * Losartan 50 mg PO daily. (5) Obstructive sleep apnea: Code(s): G47.33 - Obstructive sleep apnea (adult) (pediatric) Status: Chronic Assessment and Plan: * CPAP at night and while napping. (6) Dyslipidemia: Code(s): E78.5 - Hyperlipidemia, unspecified Status: Acute Assessment and Plan: * Simvastatin 40 mg PO daily. HPI Date of Consult Consult date: 06/12/24 Requesting Physician: Bari Main MD Primary Care Provider: Noemi Alejo MD Consult Narrative Reason for consult: med mngmnt Narrative: Fidel March is a 73 year old male admitted to hospital for hand access laparoscopic colectomy with hand-sewn ileotransverse anastomosis. Hospitalist consulted for medical management. Patient reports abdominal pain is a 4 , constant, and aching. Patient denies chest pain, palpitations, headache, dizziness, nausea, or vomiting. Pt reports that he was on metoprolol before and it was causing him to feel dizzy (25 mg). He stopped it on his own but the pcp made him restart it. His hr had been below 60 few times with couple 110's in the evening. Will monitor closer and may need to restart metoprolol but at a lower dose. 06/12 metoprolol was held yesterday and pt remained stable- no episodes of tachycardia. HR in high 50's. Will hold it for now and pt will montior veryu closely BP and HR at home with a close f/u with cardiology for further mngmnt. Review of Systems 2 Review of Systems: All systems reviewed & are unremarkable except as noted in HPI and below PMFSH Past Medical History Medical History (Updated 06/12/24 @ 12:17 by Bari Main MD) Mass of colon (~04/2024) Colon polyp Severe obesity (BMI 35.0-39.9) with comorbidity Atrial flutter Vitamin D deficiency History of complete eye exam 08/2018 L1 vertebral fracture 03/01/2008 Dyslipidemia GERD without esophagitis Benign essential hypertension Type 2 diabetes mellitus without complication, without long-term current use of insulin Chronic low back pain without sciatica Surgical History Surgical History [place] teeth extracted (~2011) Hx of colonoscopy (~10/17/18) 10/17/2018 Family History Family History Mother Diabetes mellitus Father Hypertension Family history of throat cancer Social History Social History (Updated 05/14/24 @ 08:36 by Juan Sheriff MA) Smoking packs per day: 2 Smoking cigarettes per day: 40.0 Years smoked: 30 Smoking pack-years: 60.00 Smoking status: Former smoker Second hand tobacco smoke exposure: No Alcohol intake: current Drinks per week: 3 Alcohol use details: consumes 1 beer rarely Substance use: never Substance use type: does not use Do You Feel Safe in your Home?: Yes Lack of Transportation: No Lack of Food: Never True Current Housing: I Have Housing Concerned About Future Housing: No Difficulty Paying Gas/Electric Bills: No Difficulty Paying for Meds: No Currently Unemployed: No Education: High School Diploma/GED Difficulty w/ Childcare or Family Care: No Living arrangements: with family Additional living arrangements comments: Girlfriend Occupation/Education: retired Gender identity (if verbalized by the patient): Male Spiritual care concerns: No Meds Home Medications and Allergies Home Medications ?Medication ?Instructions ?Recorded ?Confirmed ?Type blood-glucose meter (Accu-Chek #1 ea 03/07/20 06/02/24 Rx Guide Glucose Meter) aspirin 325 mg tablet,delayed 325 mg PO DAILY 08/09/22 06/10/24 History release blood sugar diagnostic (Blood #100 ea 04/09/23 06/02/24 Rx Glucose Test strips) lancets 28 gauge (Medisense Thin See Rx Instructions .Route 04/09/23 06/02/24 Rx Lancets) .COMPLEX #100 ea diclofenac sodium 75 mg 75 mg PO BID PRN pain #60 tabs 06/26/23 06/10/24 Rx tablet,delayed release blood-glucose sensor (Dexcom G7 #9 ea 07/01/23 06/02/24 Rx Sensor device) omega 7-ehn-cxb-fish oil 1,000 mg 1 cap PO DAILY 02/18/24 06/10/24 History (120 mg-180 mg) capsule (Fish Oil) empagliflozin 25 mg tablet 25 mg PO DAILY #100 tabs 04/30/24 06/10/24 Rx (Jardiance) glipizide 10 mg tablet, extended 10 mg PO BID #200 tabs 04/30/24 06/10/24 Rx release 24 hr losartan 50 mg tablet 50 mg PO DAILY #90 tabs 04/30/24 06/10/24 Rx metformin 500 mg tablet,extended 500 mg PO BID #200 tabs 04/30/24 06/10/24 Rx release 24 hr metoprolol succinate 25 mg 25 mg PO DAILY #90 tabs 04/30/24 06/10/24 Rx tablet,extended release 24 hr simvastatin 40 mg tablet 40 mg PO DAILY #200 tabs 04/30/24 06/10/24 Rx ciprofloxacin HCl 500 mg tablet 500 mg PO .COMPLEX #1 tablet 05/14/24 06/10/24 Rx metronidazole 500 mg tablet 500 mg PO .COMPLEX #3 tabs 05/14/24 06/10/24 Rx Allergies Allergy/AdvReac Type Severity Reaction Status Date / Time No Known Allergies Allergy Verified 06/10/24 07:09 Vital Signs Vital Signs - 24 hr 06/11/24 12:00 06/11/24 15:06 06/11/24 16:00 Temperature 97.1 F L Pulse Rate 52 L 55 L 53 L Respiratory Rate 18 Blood Pressure 102/48 L Pulse Oximetry 95 Oxygen Delivery 06/11/24 19:00 06/11/24 20:00 06/11/24 20:00 Temperature 97.9 F Pulse Rate 63 61 Respiratory Rate 18 Blood Pressure 124/57 L Pulse Oximetry 95 Oxygen Delivery Room Air 06/11/24 23:00 06/11/24 23:08 06/12/24 00:00 Temperature 98.8 F Pulse Rate 69 68 59 L Respiratory Rate 18 Blood Pressure 121/60 Pulse Oximetry 92 91 Oxygen Delivery CPAP 06/12/24 02:02 06/12/24 02:46 06/12/24 04:00 Temperature 98.1 F Pulse Rate 65 56 L 52 L Respiratory Rate 17 Blood Pressure 117/55 L Pulse Oximetry 92 95 Oxygen Delivery CPAP 06/12/24 07:00 Temperature 97.4 F L Pulse Rate 57 L Respiratory Rate 18 Blood Pressure 137/62 Pulse Oximetry 97 Oxygen Delivery Exam 2 Const: General: no acute distress and uncomfortable Eyes: Sclera: sclerae normal Resp: Effort & Inspection: normal respiratory effort Auscultation: clear to auscultation bilaterally Cardio: Rate: regular rate Rhythm: regular rhythm GI: Other: Hypoactive bowel sounds, abdomen slightly tender. Incisions glued and approximated. Skin: Other: Incisions glued and approximated. Neuro: Speech: normal speech Extrem: General: no pedal edema Psych: Mental Status: mental status grossly normal Affect: normal affect Results Labs 06/12/24 05:19 06/12/24 05:19 Labs: Short CBC 06/12/24 Range/Units 05:19 WBC 8.1 (4.5-10.0) K/mm3 Hgb 12.5 L (14.0-18.0) g/dL Hct 39.4 L (42.0-52.0) % Plt Count 131 L (150-375) k/mm3 [facility] 06/12/24 05:19 Sodium 137 Potassium 3.8 Chloride 105 Carbon Dioxide 22 BUN 11 Creatinine 0.64 L Glucose 136 H Calcium 8.7 Quality VTE Prophylaxis VTE prophylaxis: mechanical ordered and pharmacologic ordered
[2024-06-12] MEDS: oxyCODONE/ACETAMINOPHEN (*CRX) 5-325 MG TABLET 1 TABLET PO (10:51)
--- NOTE | 2024-06-12 12:12 | P.DS_ITS ---
DS: Admitting Diagnosis Discharge Date 06/12/2024 Admitting Diagnosis * Villous adenoma ascending colon * None insulin-dependent diabetes * Paroxysmal chronic atrial fibrillation * Obstructive sleep apnea on CPAP * Essential hypertension DS: Discharge Diagnosis Discharge Diagnosis (1) Polyp of ascending colon: Qualifiers: Colon polyp type: adenomatous Qualified Code(s): D12.2 - Benign neoplasm of ascending colon Code(s): K63.5 - Polyp of colon Status: Chronic (2) Type 2 diabetes mellitus without complication, without long-term current use of insulin: Code(s): E11.9 - Type 2 diabetes mellitus without complications Status: Chronic (3) Afib: Qualifiers: Atrial fibrillation type: paroxysmal Qualified Code(s): I48.0 - Paroxysmal atrial fibrillation Code(s): I48.91 - Unspecified atrial fibrillation Status: Chronic (4) Obstructive sleep apnea: Code(s): G47.33 - Obstructive sleep apnea (adult) (pediatric) Status: Chronic (5) Hypertension: Code(s): I10 - Essential (primary) hypertension Status: Acute DS: Summary Hospital Course Reason for hospitalization: Right colectomy to remove unresectable villous adenoma ascending colon Hospital Course: Patient had preoperative bowel prep at home and was taken to surgery on 06/10/2024. Hand access laparoscopic right colectomy was performed. The tattoo was easily seen and the polyp was palpable. There was no gross evidence of malignancy or metastatic disease. Hand-sewn ileotransverse anastomosis was performed. Patient had clear liquids the night of surgery. He had some bowel movements on postop day 1. And appeared to be doing well. He was advanced to low-fiber diet. He tolerated this well and continued to have bowel movements. He was ambulating well and taking only oral analgesics for pain. Lab work was stable. Pathology is pending at the time of this dictation. Patient was seen by hospitalist service during his stay for perioperative medical management particularly diabetes, atrial fibrillation, obstructive sleep apnea. His blood sugars were initially into the 200s and patient was surprised at this. He had been pretty lax and checking his blood sugars and he was reminded that blood glucose control is a significant factor in healing after colon surgery. Status at Discharge Functional status at discharge: independent ambulation Overall status at discharge: patient is progressing back to baseline Time Spent with Patient Time attestation: Total time spent providing and/or coordinating discharge services: Time spent: Less than 30 minutes DS: Data Data Completed and Pending Pending studies at discharge: Pending at discharge 06/10/24 09:05 Surgical [PTH] Routine Labs on day of discharge: Labs from last 24 hours 06/12/24 06/12/24 06/11/24 08:37 05:19 20:31 WBC 8.1 RBC 4.15 L Hgb 12.5 L Hct 39.4 L MCV 94.9 MCH 30.1 MCHC 31.7 L RDW 13.6 Plt Count 131 L MPV 11.5 H % Immature Plt Fraction 6.1 Sodium 137 Potassium 3.8 Chloride 105 Carbon Dioxide 22 Anion Gap 10 BUN 11 Creatinine 0.64 L Estim Creat Clear Calc 110 Estimated GFR > 60 Glucose 136 H POC Capillary Glucose 131 H 147 H Calcium 8.7 06/11/24 06/11/24 16:51 12:26 WBC RBC Hgb Hct MCV MCH MCHC RDW Plt Count MPV % Immature Plt Fraction Sodium Potassium Chloride Carbon Dioxide Anion Gap BUN Creatinine Estim Creat Clear Calc Estimated GFR Glucose POC Capillary Glucose 153 H 224 H Calcium Discharge Plan Discharge Attending physician on discharge: Bari Main Consulting providers: Sheree Mckeon Discharging Clinician: Bari Main Anticipated Discharge Date/Time: 06/12/24 12:23 Patient Disposition: Home, Self-Care Activity: may shower, no straining and as tolerated Diet: diabetic Wound Care Instructions: incision open to air Discharge Instructions: * Ambulate 3-4 x per day and as tolerated. * No lifting over 15-20lbs. * May bathe or shower. * Stairs are OK. * May drive a car in 3 days. * Keep regularly scheduled appointment to see Dr. Main. * See Dr. Peres in 2 weeks Hospitalist Discharge Instructions: we discussed- please monitor your BP and heart rate every morning and keep log. Typically, we do not advise to take beta-elba- metoprolol- if your heart rate is below 60 unless specifically instructed so per your electric motor analyst. Make an sang as soon as possible to discuss it. For your diabetes- stop glipizide and continue jardiance and metformin. Restart ozempic but at a lower dose for couple of week to ensure you tolerate it well. Please make sure you f/u with PCP for further regimen monitoring and adjustment. Your hgA1C goal is under 7. Patient Instructions: Antibiotic Form Patient Language: Tamaz[place] Stand Alone Forms: General Discharge Information Follow-up/Referrals: Bari Main MD [Physician] - Keep Reg. Scheduled Appt. Rishi Alejo MD [Primary Care Provider] - 2 Weeks Discharge Medications: New oxycodone-acetaminophen [Percocet] 5-325 mg tablet 0.5 - 1 tablet PO Q4H PRN (Reason: pain) Qty: 15 0RF Continued (DME) Dexcom G7 Sensor Device See Rx Instructions .Route Qty: 9 1RF Rx Instructions: use As directed losartan 50 mg tablet 50 mg PO DAILY Qty: 90 1RF Jardiance 25 mg tablet 25 mg PO DAILY Qty: 100 1RF metformin 500 mg tablet extended release 24 hr 500 mg PO BID Qty: 200 1RF simvastatin 40 mg tablet 40 mg PO DAILY Qty: 200 1RF aspirin 325 mg tablet,delayed release (DR/EC) 325 mg PO DAILY Patient Comments: decreased to 81 due to surgery (DME) Blood Glucose Test Strip See Rx Instructions .ROUTE .MEDSUPPLY Qty: 100 2RF Rx Instructions: Use to test blood sugar three times daily lancets [Medisense Thin Lancets] 28 gauge misc See Rx Instructions .ROUTE .COMPLEX Qty: 100 3RF Dose Instruction: USE TO CHECK BLOOD SUGAR THREE TIMES DAILY Rx Instructions: USE TO CHECK BLOOD SUGAR THREE TIMES DAILY omega 9-lyi-neo-fish oil [Fish Oil] 1,000 (120-180) mg capsule 1 cap PO DAILY (DME) blood-glucose meter [Accu-Chek Guide Glucose Meter] [facility] [place] See Rx Instructions .ROUTE .MEDSUPPLY Qty: 1 0RF Rx Instructions: Use to test blood sugar 3 times daily diclofenac sodium 75 mg tablet,delayed release (DR/EC) 75 mg PO BID PRN (Reason: pain) Qty: 60 5RF Held metoprolol succinate 25 mg tablet extended release 24 hr 25 mg PO DAILY Qty: 90 1RF Hold Instructions: Resume on 06/19/24. hold if heart rate below 60, discuss with cardiology as soon as possible for further instructions glipizide 10 mg tablet extended release 24hr 10 mg PO BID Qty: 200 1RF Hold Instructions: Resume on 06/30/24. Hold glipizide until seen by Dr. Alejo per Hospitalist Discontinued ciprofloxacin HCl 500 mg tablet 500 mg PO .COMPLEX Qty: 1 0RF Rx Instructions: 500 mg orally at 2:00pm the day before surgery; metronidazole 500 mg tablet 500 mg PO .COMPLEX Qty: 3 0RF Rx Instructions: 500 mg orally at 1:00pm, 2:00pm, and 11:00pm the day before surgery; Date of admission: 06/10/24 13:15 Primary Care Provider: Rishi Alejo Admitting Provider: Bari Main Attending physician on admission: Bari Main Condition: Improved
[2024-06-12 12:31] LABS: Glucose Point of Care 233 mg/dl (65-105)
[2024-06-12] MEDS: INSULIN ASPART (*BKC) 100 UNITS/ML SUB-Q (12:58)
== END 2024-06-12 13:20 | disposition home or self-care (01) | DRG 331 ==
LOC: ANH3MED 13:16 → ANHSURGERY 13:17 → ANH3MED 13:17
PROVIDERS: Admitting Provider Surgery; PCP Family Medicine; Visit Provider Surgery
PROC: 0DTF4ZZ Resection of Right Large Intestine, Percutaneous Endoscopic Approach (ICD-10-PCS; CPT 44204; principal; 2024-06-10 07:30)
DX: D37.4 Neoplasm of uncertain behavior of colon (principal); E11.9 Type 2 diabetes mellitus without complications; I10 Essential (primary) hypertension; G47.33 Obstructive sleep apnea (adult) (pediatric); E78.5 Hyperlipidemia, unspecified; I48.0 Paroxysmal atrial fibrillation
CPT/HCPCS: 36415; 80048; 82948; 83036; 85027; 85055; 88309; A9270; J0690; J1100; J1171; J1596; J1650; J1815; J1836; J1885; J2003; J2405; J2704; J3010; J7120

== ENCOUNTER 2024-09-01 11:50 | Outpatient (CLI) | payer MEDICARE, SELFPAY ==
[2024-09-01 22:24] LABS: Alanine Aminotransferase 28 U/L (6-50); Albumin Level 4.5 g/dL (3.5-5.1); Alkaline Phosphatase 66 U/L (38-126); Anion Gap 9 mmol/L (4-12); Aspartate Amino Transferase 54 U/L (17-59); Bilirubin,Total 0.7 mg/dL (0.2-1.3); Blood Urea Nitrogen 20 mg/dL (9-20); Carbon Dioxide 24 mmol/L (22-30); Chloride 101 mmol/L (98-107); Estimated Glomerular Filt Rate > 60; Glucose 319 mg/dL (65-110); Potassium 4.8 mmol/L (3.4-5.0); Sodium 134 mmol/L (137-145); Total Protein 7.2 g/dL (6.3-8.2)
== END 2024-09-01 11:51 | disposition home or self-care (01) ==
LOC: ANHGOSHLAB 11:50
PROVIDERS: PCP Family Medicine; Visit Provider Family Medicine
DX: E11.9 Type 2 diabetes mellitus without complications (principal); I10 Essential (primary) hypertension
CPT/HCPCS: 36415; 80053; 83036